=== PATIENT | female | born 1955 | race Caucasian/White ===

== ENCOUNTER 2018-11-14 00:38 | Inpatient (IN) ==
[2018-11-14] MEDS ORDERED: Isovue-370 500 ML BOTTLE IVP ONE (01:22)
[2018-11-14] MEDS ORDERED: *HR* FentaNYL (PF) 100 MCG/2 ML VIAL IVP ONE ×2 (01:29→20:31)
--- NOTE | 2018-11-14 01:30 | Emergency Department Note ---
Disposition Clinical Impression: Septic shock, Elevated lactic acid level Urinary tract infection Qualifiers: Urinary tract infection type: acute cystitis Hematuria presence: without hematuria Qualified Code(s): N30.00 - Acute cystitis without hematuria Disposition: Admitted As Inpatient Condition: Critical Time of Disposition: 05:20 Abdominal Pain HPI - General Chief Complaint: ED Abdominal Pain Stated Complaint: Abd Pain/Swelling Time Seen by Provider: 11/14/18 00:39 Source: patient, family Mode of arrival: ambulatory Limitations: no limitations Nursing Notes Reviewed: Yes Vital Signs Reviewed: Yes - History of Present Illness HPI Narrative: 63-year-old female past medical history of CHF, COPD, chronic kidney disease, diabetes presenting for a 3 hour history of abdominal pain. The patient states that she has had worsening abdominal distention over the past 3 d ays but notices that approximately 10 PM this evening she had sudden onset of extreme 10 out of 10 abdominal pain as well as bruising noted over her anterior abdomen. The patient states that the pain has made her short of breath and that she has noticed worsening erythema in her lower extremities as well as pitting edema. Patient is not on any blood thinners. Upon my initial evaluation, my general impression is that the patient is in acute distress due to pain. She is otherwise awake, alert, oriented, engaged to conversation and answering questions appropriately. There are no overt lateralizing signs, the patient is in no acute distress; their skin appears to be normal in color, they are not pale, not cyanotic, and not diaphoretic, they are sitting up in hospital bed interacting appropriately with environment. There is poor perfusion noted to the lower extremities with a dusky appearance, there is 3+ pitting edema noted. There is bruising noted to the anterior abdomen as well as ulcerations to the lower extremities. Patient is tender to palpation of the abdomen diffusely. Pt Subjective Complaint: abdominal pain Onset (ago): hour(s) Consistency: Worsening Location: diffuse Pain Severity: severe Pain Scale: 10 Quality: stabbing, sharp Radiation: none Migration to: no migration Associated symptoms: Reports: nausea. Denies: vomiting, fever, chills, hematemesis, hematochezia, melena, hematuria Treatments prior to arrival: none - Related Data Home Medications Medication Instructions Recorded Confirmed Budesonide/Formoterol 80/4.5 1 puff IH DAILY 11/14/18 11/14/18 [Symbicort 80/4.5] Ergocalciferol (VITAMIN D2) 50,000 unit PO QWEEK 11/14/18 11/14/18 [Vitamin D2] Escitalopram [Lexapro] 20 mg PO DAILY 11/14/18 11/14/18 Esomeprazole Magnesium [Nexium] 40 mg PO DAILY 11/14/18 11/14/18 Furosemide [Lasix] 20 mg PO QPM 11/14/18 11/14/18 Furosemide [Lasix] 40 mg PO QAM 11/14/18 11/14/18 Levothyroxine [Synthroid] 125 mcg PO 0630 11/14/18 11/14/18 Lisinopril [Zestril] 20 mg PO DAILY 11/14/18 11/14/18 Magnesium 250 mg PO DAILY 11/14/18 11/14/18 Potassium Citrate [Urocit-K] 20 meq PO BID 11/14/18 11/14/18 Ropinirole HCl [Requip] 4 mg PO HS 11/14/18 11/14/18 metFORMIN [Glucophage] 500 mg PO DAILY 11/14/18 11/14/18 Allergies Allergy/AdvReac Type Severity Reaction Status Date / Time acetaminophen [From Vicodin] AdvReac Palpitation Verified 11/17/17 08:55 s hydrocodone [From Vicodin] AdvReac Palpitation Verified 11/17/17 08:55 s promethazine [From Phenergan] AdvReac Irritable Verified 11/17/17 08:55 Review of Systems: *See History of Present Illness for more detail Constitutional: Denies: fever, chills Cardiovascular: Denies: chest pain Respiratory: Denies: dyspnea, cough, hemoptysis Gastrointestinal: Admits: abdominal pain, nausea, denies: vomiting, diarrhea, constipation, hematemesis, melena, hematochezia Genitourinary: Denies: hematuria Musculoskeletal: Denies: back pain, neck pain Integumentary: Admits: rash Neurological: Denies: headache, weakness, lightheadedness/dizziness, numbness, paresthesias, difficulty with ambulation. Endocrine: Denies: fatigue Hematological/Lymphatic: Admits: easy bruising All systems ED: reviewed and negative except as stated. Review of Systems: As Per HPI Abdominal Pain PMH - Past Medical History Medical history: Reports: arthritis, CHF, COPD, GERD, hyperlipidemia, hypertension, kidney stones, migraine, renal disease, thyroid disease Female Surgical History: Reports: appendectomy, cholecystectomy Psychiatric history: Reports: no psych history - Social History Smoking status: Former smoker Alcohol use: Reports: rarely Drug use: Reports: none Physical Exam Constitutional: No acute distress, [id number], engaged to conversation, speech is fluid, answers questions appropriately Neuro: GCS 15, no overt focal neurological deficits Head: Atraumatic, normocephalic Eyes: Pupils equal, round and reactive to light, no scleral icterus, no conjunctival injection Mouth: No lip swelling, perioral cyanosis, drooling, or trismus. Neck: Trachea midline without deviation. Anterior neck is supple without swelling, no overt thyromegaly noted. Chest: Symmetric chest wall rise Heart: Cardiac rhythm and rate are regular with S1 and S2 , no S3 or S4 appreciated, no murmurs, rubs, or clicks. Lungs: Lungs are clear to auscultation bilaterally, without accessory muscle use or prolonged expiratory phase. No wheezes, rhonchi, rales or stridor appreciated. *Abdomen: Abdomen is morbidly obese, diffusely tender to palpation, distended, evidence of significant bruising over the anterior abdomen. Otherwise soft to palpation, normal bowel sounds, no evidence of surgical incisions, or abnormal mass. No abdominal bruit auscultated. Non-rigid, no organomegaly, no ascites appreciated. No pulsatile mass, no guarding to palpation in all four quadrants, no rebound Extremities: 3+ pitting edema. Motor intact in all 4 extremities. Psychiatric exam: patient appears very anxious and teary Integumentary: As previously noted - General Limitations: no limitations General appearance: alert, in no apparent distress Course Course Narrative: Given the patient's poor peripheral perfusion status in the setting of sudden onset severe abdominal pain, distention, and bruising, we have a high index of suspicion for abdominal aortic aneurysm. Given the patient's chronic kidney disease with likely acute kidney injury superimposed on CKD we spoke with nephrology regarding renal protective interventions that could be undertaken. We are concerned about additional fluids the patient appears to be significantly fluid overloaded. Nephrology has no further recommendations at this time but will be consulted on this patient for further intervention including dialysis if needed during hospitalist admission. Shared decision making was utilized with the patient and family matters bedside versus the risks versus benefits of CT dissection with IV arterial contrast load potentially causing worsening renal function. The patient family verbalizes her understanding and agree with proceeding with CT angiogram as needed to rule out dissection. Vital Signs Temperature 99.1 F 11/14/18 00:47 Pulse Rate 111 11/14/18 00:47 Respiratory Rate 22 11/14/18 00:47 Blood Pressure 129/69 11/14/18 00:47 O2 Sat by Pulse Oximetry 92 11/14/18 00:47 Temperature 99.1 F 11/14/18 00:47 Pulse Rate 94 11/14/18 05:20 Respiratory Rate 20 11/14/18 05:20 Blood Pressure 89/55 11/14/18 05:20 O2 Sat by Pulse Oximetry 95 11/14/18 05:20 Oxygen Delivery Oxygen Delivery Room Air Procedures - Central Line Placement Right IJ Central Line Inserted*: Yes Central Line Catheter Replacement*: Yes Central Line Insertion: emergent Consent Obtained: written consent Procedural Pause: verify patient name and date of , timeout performed per policy, leonard and assess the site, assemble equipment and verify supplies, perform hand hygiene Patient Placed on Monitor/Pulse Ox: Yes During the Procedure: clinician is wearing sterile gloves, cap, mask,& gown during insertion, sterile field and sterile technique are maintained, patient's face is covered with drape or mask and wearing a cap, everyone in room is we aring a mask Central Line Prep: Chlorhexidine scrub Prep the Procedure Site: apply chloraprep to the skin using a back and forth scrubbing motion, apply chloraprep for 30 seconds (upper body), 1-2 min (femoral sites), allow prep to dry, drape the patient with a full body drape Local Anesthetic: lidocaine 2% Ultrasound Used for Placement: Yes Central Line Lumen Inserted: triple Post Procedure: sutured in place, good blood return, all ports aspirated, flushed, capped, sterile dressing applied, guide wire removed and visualized Post Procedure X-Ray: tip of catheter in good position, no pneumothorax seen Patient Tolerated Procedure: well, no complications Complications: none Name of Clinician Inserting Central Line: Bandar Evans D.O. Clinician Assisting/Completing Checklist: Chauncey Gallegos M.D. Date: 11/14/18 Time: 05:15 Additional Comments: Initial attempt at central line unsuccessful as it appears internal jugular fed into subclavian and led to a coiling of the central line which would not draw or flush. Initial central line was removed with replacement kit obtained. Sterile field was maintained and second more proximal attempt was made with successful insertion of central internal jugular vein cannulation. Patient tolerated procedure well without complications. X-ray was reviewed and tip of catheter is in good position without pneumothorax seen. Abdominal Pain - MDM Narrative Medical decision making narrative: Patient noted to have mildly elevated white count, lactic acidosis increased to 4.4, UTI apparent, tree and but opacities noted on CT dissection study however no PE or dissection was identified. Otherwise unremarkable workup. Patient started empirically on vancomycin and Zosyn. Due to continued hypotension central line catheter was placed with norepinephrine drip initiated. Patient has received cautious fluids due to concern of fluid overload status. Patient is doing well currently and will be admitted to ICU for further evaluation and management of presumed urosepsis. Patient family members bedside verbalized their understanding and agreement this plan and the patient is stable at time of admission. - Lab Data Lab results reviewed: Yes I reviewed the patient's lab results. Result diagrams: 11/14/18 01:22 11/14/18 01:22 Lab Results 11/14/18 11/14/18 11/14/18 Range/Units 01:22 01:22 01:22 WBC 13.3 H (4.3-11.1) K/mcL RBC 5.39 H (3.82-4.97) M/mcL Hgb 16.2 H (11.5-15.4) g/dL Hct 51.0 H (35.3-44.9) % MCV 94.6 (83.0-100.0) fL MCH 30.1 (28.0-33.3) pg MCHC 31.8 (31.6-35.5) g/dL RDW 16.3 H (11.5-14.5) % Plt Count 156 (140-400) K/mcL MPV 11.1 (9.4-12.4) fL Immature Gran % 0.4 (0-4) % Seg Neutrophils % 90.3 % Lymphocytes % 6.8 % Monocytes % 2.1 % Eosinophils % 0.2 % Basophils % 0.2 % Neutrophils # 12.0 H (1.6-8.9) K/mcL Lymphocytes # 0.9 (0.6-4.6) K/mcL Monocytes # 0.3 (0.0-1.3) K/mcL Eosinophils # 0.0 (0.0-0.6) K/mcL Basophils # 0.0 (0.0-0.2) K/mcL PT 13.0 H (9.4-12.1) Seconds INR 1.1 APTT 29.0 (26.0-36.0) Seconds ABG pH (7.32-7.45) pH Units ABG pCO2 (35-45) mmHg ABG pO2 (85-104) mmHg ABG HCO3 (21-27) mEq/L ABG Total CO2 (20-26) mEq/L ABG O2 Saturation (95-98) % ABG Base Excess (-2 to 3) mEq/L O2 Delivery Device Inspired O2 (1-15=lpm [id number]=%) Sodium 136 (136-145) mEq/L Potassium 4.9 (3.5-5.1) mEq/L Chloride 95 L (98-107) mEq/L Carbon Dioxide 25 (23-29) mEq/L BUN 43 H (8-23) mg/dL Creatinine 2.20 H (0.60-1.20) mg/dL Est GFR ( Amer) 27 L (> 60) Est GFR (Non-Af Amer) 22 L (> 60) BUN/Creatinine Ratio 20 (6-26) Glucose 128 H (70-105) mg/dL Calculated Osmolality 294 (280-300) Lactic Acid (0.5-2.2) mmol/L Calcium 9.9 (8.6-10.3) mg/dL Phosphorus 4.2 (2.7-4.5) mg/dL Magnesium 1.8 (1.6-2.6) mg/dL Total Bilirubin 1.8 H (0.3-1.0) mg/dL Direct Bilirubin 0.6 H (0.0-0.2) mg/dL Indirect Bilirubin 1.2 (0.0-1.2) mg/dL AST 28 (13-39) Units/L ALT 27 (7-52) Units/L Alkaline Phosphatase 102 (34-104) Units/L Troponin I < 0.03 (< 0.04) ng/mL Serum Total Protein 6.9 (6.4-8.9) g/dL Albumin 4.3 (3.5-5.7) g/dL Globulin 2.6 (2.4-3.5) g/dL Albumin/Globulin Ratio 1.7 (1.1-2.2) Lipase 66 (11-82) Units/L Urine Color (Yellow) Urine Clarity (Clear) Urine pH (5.0-8.0) pH Units Ur Specific [place] (1.010-1.025) Urine Protein (Neg-Trace) mg/dL Urine Glucose (UA) (Normal) mg/dL Urine Ketones (Negative) mg/dL Urine Blood (Negative) Urine Nitrite (Negative) Urine Bilirubin (Negative) Urine Urobilinogen (Normal) mg/dL Ur Leukocyte Esterase (Negative) Urine Microscopic RBC (0-3) per hpf Urine Microscopic WBC (0-3) per hpf Ur Squamous Epith Cells (None-Few) per lpf Amorphous Sediment (Few) Urine Bacteria (None-Few) per hpf Hyaline Casts (None-Few) per lpf Ur Culture Indicated? (NO) 11/14/18 11/14/18 11/14/18 Range/Units 01:22 01:51 02:24 WBC (4.3-11.1) K/mcL RBC (3.82-4.97) M/mcL Hgb (11.5-15.4) g/dL Hct (35.3-44.9) % MCV (83.0-100.0) fL MCH (28.0-33.3) pg MCHC (31.6-35.5) g/dL RDW (11.5-14.5) % Plt Count (140-400) K/mcL MPV (9.4-12.4) fL Immature Gran % (0-4) % Seg Neutrophils % % Lymphocytes % % Monocytes % % Eosinophils % % Basophils % % Neutrophils # (1.6-8.9) K/mcL Lymphocytes # (0.6-4.6) K/mcL Monocytes # (0.0-1.3) K/mcL Eosinophils # (0.0-0.6) K/mcL Basophils # (0.0-0.2) K/mcL PT (9.4-12.1) Seconds INR APTT (26.0-36.0) Seconds ABG pH 7.46 H (7.32-7.45) pH Units ABG pCO2 33 L (35-45) mmHg ABG pO2 55 L (85-104) mmHg ABG HCO3 23 (21-27) mEq/L ABG Total CO2 24 (20-26) mEq/L ABG O2 Saturation 90 L (95-98) % ABG Base Excess 0 (-2 to 3) mEq/L O2 Delivery Device Cannula Inspired O2 6.0 (1-15=lpm [id number]=%) Sodium (136-145) mEq/L Potassium (3.5-5.1) mEq/L Chloride (98-107) mEq/L Carbon Dioxide (23-29) mEq/L BUN (8-23) mg/dL Creatinine (0.60-1.20) mg/dL Est GFR ( Amer) (> 60) Est GFR (Non-Af Amer) (> 60) BUN/Creatinine Ratio (6-26) Glucose (70-105) mg/dL Calculated Osmolality (280-300) Lactic Acid 4.4 H* (0.5-2.2) mmol/L Calcium (8.6-10.3) mg/dL Phosphorus (2.7-4.5) mg/dL Magnesium (1.6-2.6) mg/dL Total Bilirubin (0.3-1.0) mg/dL Direct Bilirubin (0.0-0.2) mg/dL Indirect Bilirubin (0.0-1.2) mg/dL AST (13-39) Units/L ALT (7-52) Units/L Alkaline Phosphatase (34-104) Units/L Troponin I (< 0.04) ng/mL Serum Total Protein (6.4-8.9) g/dL Albumin (3.5-5.7) g/dL Globulin (2.4-3.5) g/dL Albumin/Globulin Ratio (1.1-2.2) Lipase (11-82) Units/L Urine Color Yellow (Yellow) Urine Clarity Turbid A (Clear) Urine pH 5.0 (5.0-8.0) pH Units Ur Specific [place] 1.015 (1.010-1.025) Urine Protein 100 H (Neg-Trace) mg/dL Urine Glucose (UA) Normal (Normal) mg/dL Urine Ketones Negative (Negative) mg/dL Urine Blood Large H (Negative) Urine Nitrite Negative (Negative) Urine Bilirubin Negative (Negative) Urine Urobilinogen Normal (Normal) mg/dL Ur Leukocyte Esterase Large H (Negative) Urine Microscopic RBC TNTC H (0-3) per hpf Urine Microscopic WBC TNTC H (0-3) per hpf Ur Squamous Epith Cells Many H (None-Few) per lpf Amorphous Sediment Many H (Few) Urine Bacteria Many H (None-Few) per hpf Hyaline Casts None Seen (None-Few) per lpf Ur Culture Indicated? YES A (NO) - Radiology Data Radiology results reviewed: Yes I reviewed the patient's radiology results. CT Dissection 11/14/18 01:22 IMPRESSION: CHEST No evidence of an acute aortic syndrome. Negative for acute pulmonary embolism. Bilateral lower lobe tree-in-bud nodularity, most suspicious for aspiration related bronchiolitis given basilar distribution and esophageal features of dysmotility and reflux. Enlarged main pulmonary artery and right heart chambers may be seen with pulmonary hypertension. These findings are new since 2009. ABDOMEN/PELVIS Features of volume overload, including small volume abdominal ascites, mesenteric/retroperitoneal edema and soft tissue anasarca. 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 D/ / Sage Abdalla / Sage Abdalla Interpreting Provider: Sage Abdalla Chest X-Ray 11/14/18 04:11 IMPRESSION: Uncomplicated line placement after adjusting the right internal jugular central venous catheter. D/ / Juan Diego Guerra MD / Juan Diego Guerra MD Interpreting Provider: Juan Diego Guerra MD - EKG Data EKG attestation: Yes I reviewed and interpreted this EKG. EKG results narrative: The patients EKG shows a sinus tachycardia at a rate of 107 beats per minute, PA interval of 191 milliseconds, a QRS duration of 103 milliseconds, a QT/QTc interval of 295 / 394 milliseconds respectively. There are no significant ST segment elevations, depressions, pathologic Q waves, abnormal T-wave inversions, nor any other signs of acute ischemic change. This EKG that was performed today is generally consistent in morphology with prior EKG that was performed on 07/01/2018. Sepsis Reassessment Note - Evaluation Current Stage of Sepsis: septic shock Possible Source of Sepsis: genitourinary - Focused Exam Date of Encounter: 11/14/18 Time of Encounter: 05:21 Vital Signs: Vital Signs Temp Pulse Resp BP Pulse Ox 11/14/18 04:53 93 20 72/60 98 11/14/18 04:04 96 20 84/51 96 11/14/18 03:46 96 20 100/79 95 11/14/18 03:29 96 18 88/49 89 11/14/18 02:46 99 20 95/55 92 11/14/18 02:40 109 20 72/45 95 11/14/18 02:28 99 20 77/58 91 11/14/18 01:34 91 22 114/97 94 11/14/18 00:47 99.1 F 111 22 129/69 92 Respiratory Exam: Present: wheezes Cardiovascular Exam: Present: RRR Capillary Refill: < 2 seconds Peripheral Pulse Strength: 2+ slightly diminished Peripheral Pulse Location: Radial Skin Exam: normal turgor
[2018-11-14 01:43] LABS: Basophils % 0.2 %; Eosinophils % 0.2 %; Hemoglobin 16.2 g/dL (11.5-15.4); Immature Granulocytes % 0.4 % (0-4); Lymphocytes # 0.9 K/mcL (0.6-4.6); Lymphocytes % 6.8 %; Mean Corpuscular HGB Conc 31.8 g/dL (31.6-35.5); Mean Corpuscular Hemoglobin 30.1 pg (28.0-33.3); Mean Corpuscular Volume 94.6 fL (83.0-100.0); Mean Platelet Volume 11.1 fL (9.4-12.4); Monocytes # 0.3 K/mcL (0.0-1.3); Monocytes % 2.1 %; Platelet Count 156 K/mcL (140-400); Red Blood Count 5.39 M/mcL (3.82-4.97); Red Cell Distribution Width 16.3 % (11.5-14.5); Segmented Neutrophils % 90.3 %; White Blood Count 13.3 K/mcL (4.3-11.1)
[2018-11-14 01:53] LABS: ABG Base Excess 0 mEq/L (-2 to 3); ABG HCO3 23 mEq/L (21-27); ABG Oxygen Saturation 90 % (95-98); ABG PCO2 33 mmHg (35-45); ABG PH 7.46 pH Units (7.32-7.45); ABG PO2 55 mmHg (85-104); ABG TCO2 24 mEq/L (20-26)
[2018-11-14 02:01] LABS: Alanine Aminotransferase 27 Units/L (7-52); Albumin 4.3 g/dL (3.5-5.7); Albumin/Globulin Ratio 1.7 (1.1-2.2); Alkaline Phosphatase 102 Units/L (34-104); Aspartate Amino Transferase 28 Units/L (13-39); BUN/Creatinine Ratio 20 (6-26); Bilirubin,Direct 0.6 mg/dL (0.0-0.2); Bilirubin,Indirect 1.2 mg/dL (0.0-1.2); Bilirubin,Total 1.8 mg/dL (0.3-1.0); Blood Urea Nitrogen 43 mg/dL (8-23); Calcium 9.9 mg/dL (8.6-10.3); Carbon Dioxide 25 mEq/L (23-29); Chloride 95 mEq/L (98-107); Globulin 2.6 g/dL (2.4-3.5); Glucose 128 mg/dL (70-105); Lipase 66 Units/L (11-82); Magnesium 1.8 mg/dL (1.6-2.6); Osmolality,Calculated 294 (280-300); Phosphorous 4.2 mg/dL (2.7-4.5); Potassium 4.9 mEq/L (3.5-5.1); Sodium 136 mEq/L (136-145); Total Protein 6.9 g/dL (6.4-8.9); Troponin I < 0.03 ng/mL (< 0.04); eGFR For African Americans 27 (> 60); eGFR For Non-African Americans 22 (> 60)
[2018-11-14 02:16] LABS: INR 1.1
[2018-11-14 02:32] LABS: Bilirubin,Urine Negative (Negative); Blood,Urine Large (Negative); Clarity,Urine Turbid (Clear); Color,Urine Yellow (Yellow); Glucose,Urine (UA) Normal (Normal); Ketones,Urine Negative (Negative); Leukocyte Esterase,Urine Large (Negative); Nitrite,Urine Negative (Negative); Protein,Urine 100 mg/dL (Neg-Trace); Specific Gravity,Urine 1.015 (1.010-1.025); Urobilinogen,Urine Normal (Normal)
[2018-11-14 02:33] LABS: Bacteria,Urine Many per hpf (None-Few); RBC,Urine TNTC per hpf (0-3); Squamous Epithelial Cell,Urine Many per lpf (None-Few); WBC,Urine TNTC per hpf (0-3)
[2018-11-14] MEDS ORDERED: Piperacillin/Tazobactam 3.375 GM in 0.9 % Sodium Chloride Mini Bag 100 ML IVPB ONE (02:41)
[2018-11-14 02:45] LABS: Amorphous Sediment,Urine Many (Few); Hyaline Casts,Urine None Seen per lpf (None-Few)
[2018-11-14] MEDS ORDERED: 0.9 % Sodium Chloride 500 ML IVC ONE ×2 (02:52→05:45)
[2018-11-14] MEDS: Norepinephrine 4 MG in D5% in Water 250 ML IVC SCH ×4 (04:48→14:20)
[2018-11-14] MEDS: 0.9 % Sodium Chloride 1,000 ML IVC SCH ×2 (04:49→08:23)
[2018-11-14] MEDS ORDERED: 0.9 % Sodium Chloride 1,000 ML ONE (04:50)
--- NOTE | 2018-11-14 05:12 | Emergency Department Note ---
Disposition Clinical Impression: Septic shock, Elevated lactic acid level Urinary tract infection Qualifiers: Urinary tract infection type: site unspecified Hematuria presence: without hematuria Qualified Code(s): N39.0 - Urinary tract infection, site not specified Disposition: Admitted As Inpatient Condition: Serious Time of Disposition: 05:00 General Adult HPI - General Chief complaint: ED Abdominal Pain Stated complaint: Abd Pain/Swelling Time Seen by Provider: 11/14/18 00:39 Source: patient, family Mode of arrival: ambulatory Limitations: no limitations Nursing Notes Reviewed: Yes Vital Signs Reviewed: Yes - History of Present Illness Pain Scale: 10 - Related Data Home Medications Medication Instructions Recorded Confirmed Budesonide/Formoterol 80/4.5 1 puff IH DAILY 11/14/18 11/14/18 [Symbicort 80/4.5] Ergocalciferol (VITAMIN D2) 50,000 unit PO QWEEK 11/14/18 11/14/18 [Vitamin D2] Escitalopram [Lexapro] 20 mg PO DAILY 11/14/18 11/14/18 Esomeprazole Magnesium [Nexium] 40 mg PO DAILY 11/14/18 11/14/18 Furosemide [Lasix] 20 mg PO QPM 11/14/18 11/14/18 Furosemide [Lasix] 40 mg PO QAM 11/14/18 11/14/18 Levothyroxine [Synthroid] 125 mcg PO 0630 11/14/18 11/14/18 Lisinopril [Zestril] 20 mg PO DAILY 11/14/18 11/14/18 Magnesium 250 mg PO DAILY 11/14/18 11/14/18 Potassium Citrate [Urocit-K] 20 meq PO BID 11/14/18 11/14/18 Ropinirole HCl [Requip] 4 mg PO HS 11/14/18 11/14/18 metFORMIN [Glucophage] 500 mg PO DAILY 11/14/18 11/14/18 Allergies Allergy/AdvReac Type Severity Reaction Status Date / Time acetaminophen [From Vicodin] AdvReac Palpitation Verified 11/17/17 08:55 s hydrocodone [From Vicodin] AdvReac Palpitation Verified 11/17/17 08:55 s promethazine [From Phenergan] AdvReac Irritable Verified 11/17/17 08:55 Past Medical History - Past Medical History Medical history: Reports: arthritis, CHF, COPD, GERD, hyperlipidemia, hypertension, kidney stones, migraine, renal disease, thyroid disease Surgical history: Reports: cholecystectomy, hysterectomy Psychiatric history: Reports: no psych history - Social History Smoking Status: Former smoker Smokeless Tobacco Status: No Alcohol use: Reports: rarely Drug use: Reports: none Physical Exam - General Limitations: no limitations General appearance: alert, in no apparent distress Course Vital Signs Temperature 99.1 F 11/14/18 00:47 Pulse Rate 111 11/14/18 00:47 Respiratory Rate 22 11/14/18 00:47 Blood Pressure 129/69 11/14/18 00:47 O2 Sat by Pulse Oximetry 92 11/14/18 00:47 Temperature 99.1 F 11/14/18 00:47 Pulse Rate 94 11/14/18 05:20 Respiratory Rate 20 11/14/18 05:20 Blood Pressure 89/55 11/14/18 05:20 O2 Sat by Pulse Oximetry 95 11/14/18 05:20 Oxygen Delivery Oxygen Delivery Room Air Medical Decision Making - Medical Records Medical records reviewed: Yes I reviewed the patient's medical records. - Lab Data Lab results reviewed: Yes I reviewed the patient's lab results. Result diagrams: 11/14/18 01:22 11/14/18 01:22 Lab Results 11/14/18 11/14/18 11/14/18 Range/Units 01:22 01:22 01:22 WBC 13.3 H (4.3-11.1) K/mcL RBC 5.39 H (3.82-4.97) M/mcL Hgb 16.2 H (11.5-15.4) g/dL Hct 51.0 H (35.3-44.9) % MCV 94.6 (83.0-100.0) fL MCH 30.1 (28.0-33.3) pg MCHC 31.8 (31.6-35.5) g/dL RDW 16.3 H (11.5-14.5) % Plt Count 156 (140-400) K/mcL MPV 11.1 (9.4-12.4) fL Immature Gran % 0.4 (0-4) % Seg Neutrophils % 90.3 % Lymphocytes % 6.8 % Monocytes % 2.1 % Eosinophils % 0.2 % Basophils % 0.2 % Neutrophils # 12.0 H (1.6-8.9) K/mcL Lymphocytes # 0.9 (0.6-4.6) K/mcL Monocytes # 0.3 (0.0-1.3) K/mcL Eosinophils # 0.0 (0.0-0.6) K/mcL Basophils # 0.0 (0.0-0.2) K/mcL PT 13.0 H (9.4-12.1) Seconds INR 1.1 APTT 29.0 (26.0-36.0) Seconds ABG pH (7.32-7.45) pH Units ABG pCO2 (35-45) mmHg ABG pO2 (85-104) mmHg ABG HCO3 (21-27) mEq/L ABG Total CO2 (20-26) mEq/L ABG O2 Saturation (95-98) % ABG Base Excess (-2 to 3) mEq/L O2 Delivery Device Inspired O2 (1-15=lpm [id number]=%) Sodium 136 (136-145) mEq/L Potassium 4.9 (3.5-5.1) mEq/L Chloride 95 L (98-107) mEq/L Carbon Dioxide 25 (23-29) mEq/L BUN 43 H (8-23) mg/dL Creatinine 2.20 H (0.60-1.20) mg/dL Est GFR ( Amer) 27 L (> 60) Est GFR (Non-Af Amer) 22 L (> 60) BUN/Creatinine Ratio 20 (6-26) Glucose 128 H (70-105) mg/dL Calculated Osmolality 294 (280-300) Lactic Acid (0.5-2.2) mmol/L Calcium 9.9 (8.6-10.3) mg/dL Phosphorus 4.2 (2.7-4.5) mg/dL Magnesium 1.8 (1.6-2.6) mg/dL Total Bilirubin 1.8 H (0.3-1.0) mg/dL Direct Bilirubin 0.6 H (0.0-0.2) mg/dL Indirect Bilirubin 1.2 (0.0-1.2) mg/dL AST 28 (13-39) Units/L ALT 27 (7-52) Units/L Alkaline Phosphatase 102 (34-104) Units/L Troponin I < 0.03 (< 0.04) ng/mL Serum Total Protein 6.9 (6.4-8.9) g/dL Albumin 4.3 (3.5-5.7) g/dL Globulin 2.6 (2.4-3.5) g/dL Albumin/Globulin Ratio 1.7 (1.1-2.2) Lipase 66 (11-82) Units/L Urine Color (Yellow) Urine Clarity (Clear) Urine pH (5.0-8.0) pH Units Ur Specific [place] (1.010-1.025) Urine Protein (Neg-Trace) mg/dL Urine Glucose (UA) (Normal) mg/dL Urine Ketones (Negative) mg/dL Urine Blood (Negative) Urine Nitrite (Negative) Urine Bilirubin (Negative) Urine Urobilinogen (Normal) mg/dL Ur Leukocyte Esterase (Negative) Urine Microscopic RBC (0-3) per hpf Urine Microscopic WBC (0-3) per hpf Ur Squamous Epith Cells (None-Few) per lpf Amorphous Sediment (Few) Urine Bacteria (None-Few) per hpf Hyaline Casts (None-Few) per lpf Ur Culture Indicated? (NO) 11/14/18 11/14/18 11/14/18 Range/Units 01:22 01:51 02:24 WBC (4.3-11.1) K/mcL RBC (3.82-4.97) M/mcL Hgb (11.5-15.4) g/dL Hct (35.3-44.9) % MCV (83.0-100.0) fL MCH (28.0-33.3) pg MCHC (31.6-35.5) g/dL RDW (11.5-14.5) % Plt Count (140-400) K/mcL MPV (9.4-12.4) fL Immature Gran % (0-4) % Seg Neutrophils % % Lymphocytes % % Monocytes % % Eosinophils % % Basophils % % Neutrophils # (1.6-8.9) K/mcL Lymphocytes # (0.6-4.6) K/mcL Monocytes # (0.0-1.3) K/mcL Eosinophils # (0.0-0.6) K/mcL Basophils # (0.0-0.2) K/mcL PT (9.4-12.1) Seconds INR APTT (26.0-36.0) Seconds ABG pH 7.46 H (7.32-7.45) pH Units ABG pCO2 33 L (35-45) mmHg ABG pO2 55 L (85-104) mmHg ABG HCO3 23 (21-27) mEq/L ABG Total CO2 24 (20-26) mEq/L ABG O2 Saturation 90 L (95-98) % ABG Base Excess 0 (-2 to 3) mEq/L O2 Delivery Device Cannula Inspired O2 6.0 (1-15=lpm [id number]=%) Sodium (136-145) mEq/L Potassium (3.5-5.1) mEq/L Chloride (98-107) mEq/L Carbon Dioxide (23-29) mEq/L BUN (8-23) mg/dL Creatinine (0.60-1.20) mg/dL Est GFR ( Amer) (> 60) Est GFR (Non-Af Amer) (> 60) BUN/Creatinine Ratio (6-26) Glucose (70-105) mg/dL Calculated Osmolality (280-300) Lactic Acid 4.4 H* (0.5-2.2) mmol/L Calcium (8.6-10.3) mg/dL Phosphorus (2.7-4.5) mg/dL Magnesium (1.6-2.6) mg/dL Total Bilirubin (0.3-1.0) mg/dL Direct Bilirubin (0.0-0.2) mg/dL Indirect Bilirubin (0.0-1.2) mg/dL AST (13-39) Units/L ALT (7-52) Units/L Alkaline Phosphatase (34-104) Units/L Troponin I (< 0.04) ng/mL Serum Total Protein (6.4-8.9) g/dL Albumin (3.5-5.7) g/dL Globulin (2.4-3.5) g/dL Albumin/Globulin Ratio (1.1-2.2) Lipase (11-82) Units/L Urine Color Yellow (Yellow) Urine Clarity Turbid A (Clear) Urine pH 5.0 (5.0-8.0) pH Units Ur Specific [place] 1.015 (1.010-1.025) Urine Protein 100 H (Neg-Trace) mg/dL Urine Glucose (UA) Normal (Normal) mg/dL Urine Ketones Negative (Negative) mg/dL Urine Blood Large H (Negative) Urine Nitrite Negative (Negative) Urine Bilirubin Negative (Negative) Urine Urobilinogen Normal (Normal) mg/dL Ur Leukocyte Esterase Large H (Negative) Urine Microscopic RBC TNTC H (0-3) per hpf Urine Microscopic WBC TNTC H (0-3) per hpf Ur Squamous Epith Cells Many H (None-Few) per lpf Amorphous Sediment Many H (Few) Urine Bacteria Many H (None-Few) per hpf Hyaline Casts None Seen (None-Few) per lpf Ur Culture Indicated? YES A (NO) - Radiology Data Radiology results reviewed: Yes I reviewed the patient's radiology results. CT Dissection 11/14/18 01:22 IMPRESSION: CHEST No evidence of an acute aortic syndrome. Negative for acute pulmonary embolism. Bilateral lower lobe tree-in-bud nodularity, most suspicious for aspiration related bronchiolitis given basilar distribution and esophageal features of dysmotility and reflux. Enlarged main pulmonary artery and right heart chambers may be seen with pulmonary hypertension. These findings are new since 2009. ABDOMEN/PELVIS Features of volume overload, including small volume abdominal ascites, mesenteric/retroperitoneal edema and soft tissue anasarca. 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 D/ / Sage Abdalla / Sage Abdalla Interpreting Provider: Sage Abdalla Chest X-Ray 11/14/18 04:11 IMPRESSION: Uncomplicated line placement after adjusting the right internal jugular central venous catheter. D/ / Juan Diego Guerra MD / Juan Diego Guerra MD Interpreting Provider: Juan Diego Guerra MD - EKG Data EKG #1 EKG attestation: Yes I reviewed and interpreted this EKG. EKG results narrative: EKG shows sinus tachycardia with ventricular rate of 107. Low voltage. Minimal inferior ST elevations. No ectopy. No ST depression. Critical Care Time Critical Care Time: Yes Total Critical Care Time: 90 Attestation: Critical care performed: Time is exclusive of separately billable procedures. Time includes: direct patient care, patient reassessment, coordination of patient care, interpretation of data (laboratory data, radiology data, and respiratory data), review of patient's medical records, medical consultation and documentation of patient care. Procedures included in critical care time: Procedures excluded from critical care time: Right IJ central line placement. Attestation Statement - Attestation Attestation: IChauncey MD, personally evaluated this patient and discussed their management with the resident physician. I reviewed the resident's note and agree with the documented findings, medical decision making, and plan of care. I reviewed the residents documentation and agree with the residents assessment and plan of care. I have personally had face to face time with the patient. I personally supervised and was present for the will/critical portions of the following procedures completed by the resident: EKG interpretation, right IJ central venous catheter placement. 63-year-old female presented to the emergency department with a complaint of severe crampy mid and lower abdominal pain that started about 10 PM this evening . She also complains of pain in both legs. Also increased shortness of breath. No increased cough. No chest pain. No vomiting. She also noticed some spontaneous bruising on the right mid to lower abdominal wall which just started this evening also. On examination patient is a well-developed morbidly obese female in mild to moderate distress. She is alert and oriented 3. There is no cyanosis or diaphoresis. Breath sounds are decreased bilaterally. No definite rales or wheezes noted. Heart regular with a mild tachycardia. Abdomen is soft with mild diffuse lower abdominal tenderness. There is a large area of ecchymosis on the right mid lower abdominal wall. Patient has mottling of the lower extremities. Family states she normally has discoloration of her feet and ankles but not the entire legs. She does have palpable pedal pulses. No gross focal neurological deficits. EKG shows sinus tachycardia with ventricular rate of 107. Low voltage. Minimal inferior ST elevations. No ectopy. No ST depression. Labs and imaging reviewed. Lactic acid 4.4. WBC 13.3. Creatinine 2.20. Urinalysis shows significant UTI. CTA dissection study was performed despite patient's renal function due to the abrupt onset of this lower abdominal pain and mottling of the lower extremities we were very concerned about an aneurysm or dissection. This showed no evidence of a dissection or aneurysm. No evidence of pulmonary embolism. Patient became progressively more hypotensive here in the emergency department. A right IJ central venous catheter was placed by Dr. Evans under my direct supervision. The first attempt the catheter called within the neck and did not of the chest. This was removed and on second attempt the catheter was placed successfully without difficulty. Confirmed by x-ray. Patient was started on norepinephrine infusion. The hospitalist, Dr. Castillo, was consulted and accepted admission of the patient.
[2018-11-14] MEDS ORDERED: Ipratropium/Albuterol Neb 3 ML IH ONE (05:24)
[2018-11-14] MEDS ORDERED: Ipratropium/Albuterol Neb 3 ML ONE ×2 (05:30→05:32)
--- NOTE | 2018-11-14 07:47 | Internal Med History&Physical ---
Date of Encounter: 11/14/18 Time of Encounter: 07:44 Internal Medicine - H&P: HPI History of present illness: Ms. Cline is a 63 year old female Past Med Surg Social Fam HX - Past Medical History Medical history: arthritis, CHF, COPD, GERD, hyperlipidemia, hypertension, kidney stones, migraine, renal disease, thyroid disease Psychiatric history: no psych history - Past Surgical History Surgical History: cholecystectomy, hysterectomy Additional surgical history: partial hysterectomy - Social History Smoking Status: Former smoker Smokeless Tobacco Status: No Alcohol use: rarely Drug use: none - Family History Father Hx Family Cancer: Yes Internal Medicine - H&P: Meds Budesonide/Formoterol 80/4.5 [Symbicort 80/4.5] 1 puff IH DAILY 11/14/18 [History] Ergocalciferol (VITAMIN D2) [Vitamin D2] 50,000 unit PO QWEEK 11/14/18 [History] Escitalopram [Lexapro] 20 mg PO DAILY 11/14/18 [History] Esomeprazole Magnesium [Nexium] 40 mg PO DAILY 11/14/18 [History] Furosemide [Lasix] 20 mg PO QPM 11/14/18 [History] Furosemide [Lasix] 40 mg PO QAM 11/14/18 [History] Levothyroxine [Synthroid] 125 mcg PO 0630 11/14/18 [History] Lisinopril [Zestril] 20 mg PO DAILY 11/14/18 [History] Magnesium 250 mg PO DAILY 11/14/18 [History] Potassium Citrate [Urocit-K] 20 meq PO BID 11/14/18 [History] Ropinirole HCl [Requip] 4 mg PO HS 11/14/18 [History] metFORMIN [Glucophage] 500 mg PO DAILY 11/14/18 [History] Allergy/AdvReac Type Severity Reaction Status Date / Time acetaminophen [From Vicodin] AdvReac Palpitation Verified 11/17/17 08:55 s hydrocodone [From Vicodin] AdvReac Palpitation Verified 11/17/17 08:55 s promethazine [From Phenergan] AdvReac Irritable Verified 11/17/17 08:55 All Systems PM: A 10-system review of systems was performed and is negative for pertinent findings except as documented above in the HPI. - Constitutional Vitals: Temp Pulse Resp BP Pulse Ox 99.1 F 102 20 81/57 97 11/14/18 00:47 11/14/18 07:19 11/14/18 07:19 11/14/18 07:19 11/14/18 07:19 Internal Med - H&P Results - Labs CBC & Chem 7: 11/14/18 01:22 11/14/18 01:22 Labs: Short CBC 11/14/18 Range/Units 01:22 WBC 13.3 H (4.3-11.1) K/mcL Hgb 16.2 H (11.5-15.4) g/dL Hct 51.0 H (35.3-44.9) % Plt Count 156 (140-400) K/mcL Neutrophils # 12.0 H (1.6-8.9) K/mcL BMP 11/14/18 01:22 Sodium 136 Potassium 4.9 Chloride 95 L Carbon Dioxide 25 BUN 43 H Creatinine 2.20 H Glucose 128 H Calcium 9.9 Cardiac Enzymes 11/14/18 Range/Units 01:22 Troponin I < 0.03 (< 0.04) ng/mL Liver Function 11/14/18 Range/Units 01:22 Total Bilirubin 1.8 H (0.3-1.0) mg/dL Direct Bilirubin 0.6 H (0.0-0.2) mg/dL AST 28 (13-39) Units/L ALT 27 (7-52) Units/L Alkaline Phosphatase 102 (34-104) Units/L Albumin 4.3 (3.5-5.7) g/dL Urine 11/14/18 Range/Units 02:24 Urine Color Yellow (Yellow) Urine Clarity Turbid A (Clear) Urine pH 5.0 (5.0-8.0) pH Units Ur Specific [place] 1.015 (1.010-1.025) Urine Protein 100 H (Neg-Trace) mg/dL Urine Glucose (UA) Normal (Normal) mg/dL - ABG Interpretation ABG results: 11/14/18 01:51 ABG pH 7.46 H ABG pCO2 33 L ABG pO2 55 L ABG HCO3 23 ABG Total CO2 24 ABG O2 Saturation 90 L ABG Base Excess 0 - Impressions ITS Impressions Chest X-Ray 11/14/18 01:04 IMPRESSION: No acute disease. Pulmonary hypertension. D/ / Juan Diego Guerra MD / Juan Diego Guerra MD Interpreting Provider: Juan Diego Guerra MD Dissection 11/14/18 01:22 IMPRESSION: CHEST No evidence of an acute aortic syndrome. Negative for acute pulmonary embolism. Bilateral lower lobe tree-in-bud nodularity, most suspicious for aspiration related bronchiolitis given basilar distribution and esophageal features of dysmotility and reflux. Enlarged main pulmonary artery and right heart chambers may be seen with pulmonary hypertension. These findings are new since 2009. ABDOMEN/PELVIS Features of volume overload, including small volume abdominal ascites, mesenteric/retroperitoneal edema and soft tissue anasarca. 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 D/ / Sage Abdalla / Sage Abdalla Interpreting Provider: Sage Abdalla Chest X-Ray 11/14/18 03:52 IMPRESSION: Uncomplicated line placement after adjusting the right internal jugular central venous catheter. D/ / Juan Diego Guerra MD / Juan Diego Guerra MD Interpreting Provider: Juan Diego Guerra MD Chest X-Ray 11/14/18 04:11 IMPRESSION: Uncomplicated line placement after adjusting the right internal jugular central venous catheter. D/ / Juan Diego Guerra MD / Juan Diego Guerra MD Interpreting Provider: Juan Diego Guerra MD - Assessment and Plan (1) Septic shock Current Visit: Yes Status: Acute (2) Urinary tract infection Current Visit: Yes Status: Acute Qualifiers: Urinary tract infection type: site unspecified Hematuria presence: without hematuria Qualified Code(s): N39.0 - Urinary tract infection, site not specified (3) Diabetes Current Visit: No Status: Chronic Qualifiers: (4) Obstructive sleep apnea Current Visit: No Status: Chronic (5) DVT prophylaxis Current Visit: No Status: Resolved (6) Acute kidney injury superimposed on CKD Current Visit: Yes Status: Acute - Time Spent With Patient Total time spent is greater than 50% in coordination of care (as documented) at patient's floor/unit and/or counseling patient:
[2018-11-14] MEDS ORDERED: Ondansetron 4 MG/2 ML VIAL IVP PRN (08:02)
[2018-11-14] MEDS ORDERED: Naloxone 0.4 MG/ML INJ IVP PRN (08:02)
--- NOTE | 2018-11-14 08:53 | Pulmonology History & Physical ---
Date of Encounter: 11/14/18 Time of Encounter: 08:53 Assessment and Plan (1) Septic shock Current visit: Yes Status: Acute I spent 33min of Critical Care time with this patient. It involved decision making of high complexity to assess, manipulate, and support vital organ system failure and/or to prevent further life threatening deterioration of the patient's condition. The time involved in the performance of separately reporta ble procedures was not counted toward critical care time. Patient seen and examined at bedside Labs, radiology, chart personally reviewed. Management was reviewed during multidisciplinary critical care rounds. Below reflects my systems based assessment and plan for this critically ill patient LEAD DATA ARCHITECT: The patient is awake and alert there is no focal deficit she is at risk for development of delirium we will continue to monitor for this Pulm: She has a mild respiratory insufficiency and nasal cannula O2 which is likely secondary to hydrostatic pulmonary edema and possibly pneumonia we will continue supplemental oxygen keep saturation around 92% she may need to be placed on BiPAP as I suspect a degree of capillary leak because of sepsis which showed would lead to worsening pulmonary edema factor some evidence of pulmonary edema on her imaging already Cards: Distributive shock secondary to sepsis she is on vasopressor (levophed) goal map around 65. Lactate was initially elevated but has normalized. Patient has a history of heart failure and has mild volume overload unfortunately in the setting of sepsis would to hold off on further diuresis. GI: Abdominal pain improving possibly related to UTI she also has this poorly characterized erythema and bruising which is somewhat of a mystery how this developed as there is no clear antecedent trauma there is no clear pattern of necrosis and this is not commented on on the CT scan of her abdomen done earlier I did consult a general surgeon and felt that no surgical intervention is tender would need to monitor this I did demarcate the area with a felt pen Nutrition: Nothing by mouth for now because of high vasopressor requirements Renal: Acute on chronic kidney injury unfortunately patient has received contrast has been hypotension I have a concern that her renal function will worsen and she has history of horseshoe kidney following was [facility] will consult nephrology to follow this patient with this as there is a concern this may progress to need for temporary or even permanent hemodialysis UOP Monitored, Cont to Trend sCr and monitor Electrolytes. ID: She is on broad-spectrum antibiotics for concern for pneumonia UTI and possible soft tissue infection. De-escalate based upon cultures Heme/Onc: DVT prophylaxis given Endo: Glucose Monitored continue bolus dosing of insulin Integ/MSK: Skin Care per routine ICU Nursing Protocol to prevent ulcers. 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 insulin use: unspecified fdc insulin use status Diabetes mellitus complication status: with other specified complication Qualified Code(s): E11.69 - Type 2 diabetes mellitus with other specified complication (5) Elevated lactic acid level Current visit: Yes Status: Acute (6) Urinary tract infection Current visit: Yes Status: Acute Qualifiers: Urinary tract infection type: site unspecified Hematuria presence: without hematuria Qualified Code(s): N39.0 - Urinary tract infection, site not specified (7) Acute kidney injury superimposed on CKD Current visit: Yes Status: Acute History of Present Illness Chief complaint: Abdominal Pain HPI: Ms. Cline is a 63 year old female presented for worsening abdominal pain. Patien t states that over the last few days she has had abdominal pain with a couple of loose stools. His a past medical history of CHF and COPD along with chronic kidney disease and diabetes. In the emergency room patient was evaluated for aortic dissection with a CT angiogram this was not suggestive of aortic dissection but was notable for these enteric retroperitoneal fat stranding with abdominal ascites. Otherwise borderline horseshoe kidney with scattered coarse nephrolithiasis the hepatobiliary system and otherwise findings were unremarkable except for tree-in-bud opacities within the lung which may be consistent with pneumonia. She did have a urinalysis which was suggestive of urinary tract infection. Patient was noted to be hypotensive despite fluid resuscitation requiring vasopressors she was transferred to the ICU for evaluation of septic shock. When I spoke with her she was actually feeling a bit better from a abdominal pain standpoint she denied any vomiting there was noted a area of erythema and bruising which should been developed itching over the past few hours patient denies any trauma to that region and did not even know that it was there. She denies administered any any injections to the abdominal rate generally including anticoagulants or insulin. She is a former smoker who quit remotely and she also has obstructive sleep apnea but could not tolerate BiPAP mask Denies any hemoptysis or vision changes headaches blood in the stool or urine or rashes Past Med Surg Social Fam HX - Past Medical History Medical history: arthritis, CHF, COPD, GERD, hyperlipidemia, hypertension, kidney stones, migraine, renal disease, thyroid disease Psychiatric history: no psych history - Past Surgical History Surgical History: cholecystectomy, hysterectomy Additional surgical history: partial hysterectomy - Social History Smoking Status: Former smoker Smokeless Tobacco Status: No Alcohol use: rarely Drug use: none - Family History Father Hx Family Cancer: Yes Medications and Allergies Budesonide/Formoterol 80/4.5 [Symbicort 80/4.5] 1 puff IH DAILY 11/14/18 [History] Ergocalciferol (VITAMIN D2) [Vitamin D2] 50,000 unit PO QWEEK 11/14/18 [History] Escitalopram [Lexapro] 20 mg PO DAILY 11/14/18 [History] Esomeprazole Magnesium [Nexium] 40 mg PO DAILY 11/14/18 [History] Furosemide [Lasix] 20 mg PO QPM 11/14/18 [History] Furosemide [Lasix] 40 mg PO QAM 11/14/18 [History] Levothyroxine [Synthroid] 125 mcg PO 0630 11/14/18 [History] Lisinopril [Zestril] 20 mg PO DAILY 11/14/18 [History] Magnesium 250 mg PO DAILY 11/14/18 [History] Potassium Citrate [Urocit-K] 20 meq PO BID 11/14/18 [History] Ropinirole HCl [Requip] 4 mg PO HS 11/14/18 [History] metFORMIN [Glucophage] 500 mg PO DAILY 11/14/18 [History] Allergy/AdvReac Type Severity Reaction Status Date / Time acetaminophen [From Vicodin] AdvReac Palpitation Verified 11/17/17 08:55 s hydrocodone [From Vicodin] AdvReac Palpitation Verified 11/17/17 08:55 s promethazine [From Phenergan] AdvReac Irritable Verified 11/17/17 08:55 All Systems: The remainder of the systems were reviewed and are negative Physical Examination Vital Signs: Vital Signs, Last 4 Hours Pulse Resp BP Pulse Ox 11/14/18 08:15 99 21 68/58 91 11/14/18 07:27 94 22 88/58 93 11/14/18 07:19 102 20 81/57 97 11/14/18 06:10 97 20 77/37 94 11/14/18 06:00 97 16 82/66 97 11/14/18 05:55 96 18 72/58 96 11/14/18 05:50 96 16 85/48 96 11/14/18 05:45 95 18 87/47 94 11/14/18 05:40 94 16 82/50 96 11/14/18 05:35 94 20 99/68 95 11/14/18 05:30 94 20 84/61 96 11/14/18 05:20 94 20 89/55 95 11/14/18 05:15 94 21 80/58 95 11/14/18 05:10 94 20 84/69 95 General appearance: no acute distress Eyes: nonicteric ENT: oropharynx moist Mallampati (class): 4 Neck: supple Effort: normal Auscultation: bilateral: rales Cardiovascular: regular rate and rhythm Gastrointestinal: normoactive bowel sounds, soft, other (Modest tenderness to deep palpation she also has a larger periumbilical erythema with some surrounding bruising without clear features of necrosis but the color is dark purplish hue) Integumentary: normal Extremities: pink and warm, pulses normal, no ischemia or petechiae, edema (b/l ) Musculoskeletal: no deformities normal mental status, non-focal exam, pupils equal and round mood appropriate Results - Laboratory Findings CBC and BMP: 11/14/18 01:22 11/14/18 01:22 ABG ABG pH 7.46 pH Units (7.32-7.45) H 11/14/18 01:51 ABG pCO2 33 mmHg (35-45) L 11/14/18 01:51 ABG pO2 55 mmHg (85-104) L 11/14/18 01:51 ABG O2 Saturation 90 % (95-98) L 11/14/18 01:51 PT/INR, D-dimer PT 13.0 Seconds (9.4-12.1) H 11/14/18 01:22 Abnormal lab findings: Abnormal lab results WBC 13.3 K/mcL (4.3-11.1) H 11/14/18 01:22 RBC 5.39 M/mcL (3.82-4.97) H 11/14/18 01:22 Hgb 16.2 g/dL (11.5-15.4) H 11/14/18 01:22 Hct 51.0 % (35.3-44.9) H 11/14/18 01:22 RDW 16.3 % (11.5-14.5) H 11/14/18 01:22 Neutrophils # 12.0 K/mcL (1.6-8.9) H 11/14/18 01:22 PT 13.0 Seconds (9.4-12.1) H 11/14/18 01:22 ABG pH 7.46 pH Units (7.32-7.45) H 11/14/18 01:51 ABG pCO2 33 mmHg (35-45) L 11/14/18 01:51 ABG pO2 55 mmHg (85-104) L 11/14/18 01:51 ABG O2 Saturation 90 % (95-98) L 11/14/18 01:51 Chloride 95 mEq/L (98-107) L 11/14/18 01:22 BUN 43 mg/dL (8-23) H 11/14/18 01:22 Creatinine 2.20 mg/dL (0.60-1.20) H 11/14/18 01:22 Est GFR ( Amer) 27 (> 60) L 11/14/18 01:22 Est GFR (Non-Af Amer) 22 (> 60) L 11/14/18 01:22 Glucose 128 mg/dL (70-105) H 11/14/18 01:22 Lactic Acid 4.4 mmol/L (0.5-2.2) H* 11/14/18 01:22 Total Bilirubin 1.8 mg/dL (0.3-1.0) H 11/14/18 01:22 Direct Bilirubin 0.6 mg/dL (0.0-0.2) H 11/14/18 01:22 Urine Clarity Turbid (Clear) A 11/14/18 02:24 Urine Protein 100 mg/dL (Neg-Trace) H 11/14/18 02:24 Urine Blood Large (Negative) H 11/14/18 02:24 Ur Leukocyte Esterase Large (Negative) H 11/14/18 02:24 Urine Microscopic RBC TNTC per hpf (0-3) H 11/14/18 02:24 Urine Microscopic WBC TNTC per hpf (0-3) H 11/14/18 02:24 Ur Squamous Epith Cells Many per lpf (None-Few) H 11/14/18 02:24 Amorphous Sediment Many (Few) H 11/14/18 02:24 Urine Bacteria Many per hpf (None-Few) H 11/14/18 02:24 Ur Culture Indicated? YES (NO) A 11/14/18 02:24 - Diagnostic Findings Chest x-ray: report reviewed, image reviewed CT scan - chest: report reviewed, image reviewed
[2018-11-14] MEDS ORDERED: Ringers Solution, Lactated 1,000 ML ONE (10:39)
--- NOTE | 2018-11-14 11:02 | AcuteCare Surgery Consult Note ---
Date of Encounter: 11/14/18 Time of Encounter: 10:56 Assessment and Plan (1) Septic shock Current Visit: Yes Status: Acute 63F admitted with sepsis currently requiring pressors with a finding of skin discoloration; no tenderness, no purulent drainage; uncertain of exact etiology but suspect that her skin changes are apart of the larger sepsis process that is going on; there is no necrosis so there is no need for surgical intervention right now, but there is need for close monitoring; NPO IVF IV abx per ICu wean pressors as tolerated restart home meds to decrease edema and assist with respiratory effort will cont to follow History of Present Illness Consult date: 11/14/18 Reason for consult: other (hypotension, skin discoloration) History of present illness: 63F PMH significant for GERD, obesity, CHF, TIARA, DM, venous insufficiency who presents with two day history of generalized malaise, difficulty breathing, and skin discoloration along abodminal wall and lower extremity. General surgery was consulted for the abdominal wall skin changes. The patient states that she did not bump into anything, had not received any prophylactic dvt injections, nor any other type of trauma. The patient also mentioned that along with her shortness of breath she noted her feet discolored a purple color and swollen. She does take diurectics, but the patient suggested that she has not been taking it as of late due to the cost. No reports of fevers, chills or other systemic symptoms besides what was described. Past Med Surg Social Fam HX - Past Medical History Medical history: arthritis, CHF, COPD, GERD, hyperlipidemia, hypertension, kidney stones, migraine, renal disease, thyroid disease Psychiatric history: no psych history - Past Surgical History Surgical History: cholecystectomy, hysterectomy Additional surgical history: partial hysterectomy - Social History Smoking Status: Former smoker Smokeless Tobacco Status: No Alcohol use: rarely Drug use: none - Family History Father Hx Family Cancer: Yes Medications and Allergies Budesonide/Formoterol 80/4.5 [Symbicort 80/4.5] 1 puff IH DAILY 11/14/18 [History] Ergocalciferol (VITAMIN D2) [Vitamin D2] 50,000 unit PO QWEEK 11/14/18 [History] Escitalopram [Lexapro] 20 mg PO DAILY 11/14/18 [History] Esomeprazole Magnesium [Nexium] 40 mg PO DAILY 11/14/18 [History] Furosemide [Lasix] 20 mg PO QPM 11/14/18 [History] Furosemide [Lasix] 40 mg PO QAM 11/14/18 [History] Levothyroxine [Synthroid] 125 mcg PO 0630 11/14/18 [History] Lisinopril [Zestril] 20 mg PO DAILY 11/14/18 [History] Magnesium 250 mg PO DAILY 11/14/18 [History] Potassium Citrate [Urocit-K] 20 meq PO BID 11/14/18 [History] Ropinirole HCl [Requip] 4 mg PO HS 11/14/18 [History] metFORMIN [Glucophage] 500 mg PO DAILY 11/14/18 [History] Allergy/AdvReac Type Severity Reaction Status Date / Time acetaminophen [From Vicodin] AdvReac Palpitation Verified 11/17/17 08:55 s hydrocodone [From Vicodin] AdvReac Palpitation Verified 11/17/17 08:55 s promethazine [From Phenergan] AdvReac Irritable Verified 11/17/17 08:55 Review of Systems All systems PM: 12 point ROS negative besides HPI findings General Surgery Exam Initial Vital Signs Temp Pulse Resp BP Pulse Ox 99.1 F 111 22 129/69 92 11/14/18 00:47 11/14/18 00:47 11/14/18 00:47 11/14/18 00:47 11/14/18 00:47 - General physical appearance other (mild distress) - Eyes normal ocular movement - ENT normocephalic - Neck trachea midline, no lymphadectomy - Respiratory normal expansion, normal respiratory effort - Cardiovascular Cardiovascular exam: Present: RRR - Abdomen Abdomen general surgery: Present: soft, non tender - Integumentary Integumentary general surgery: Present: warm and dry, other (erythema, dark discoloration; ) - Neurologic Present: CN 2-12 grossly intact - Psychiatric Psychiatric general surgery: Present: A&Ox3 Exam Initial Vital Signs Temp Pulse Resp BP Pulse Ox 99.1 F 111 22 129/69 92 11/14/18 00:47 11/14/18 00:47 11/14/18 00:47 11/14/18 00:47 11/14/18 00:47 Results - Labs 11/14/18 01:22 11/14/18 01:22 Abnormal lab results WBC 13.3 K/mcL (4.3-11.1) H 11/14/18 01:22 RBC 5.39 M/mcL (3.82-4.97) H 11/14/18 01:22 Hgb 16.2 g/dL (11.5-15.4) H 11/14/18 01:22 Hct 51.0 % (35.3-44.9) H 11/14/18 01:22 RDW 16.3 % (11.5-14.5) H 11/14/18 01:22 Neutrophils # 12.0 K/mcL (1.6-8.9) H 11/14/18 01:22 PT 13.0 Seconds (9.4-12.1) H 11/14/18 01:22 ABG pH 7.46 pH Units (7.32-7.45) H 11/14/18 01:51 ABG pCO2 33 mmHg (35-45) L 11/14/18 01:51 ABG pO2 55 mmHg (85-104) L 11/14/18 01:51 ABG O2 Saturation 90 % (95-98) L 11/14/18 01:51 Chloride 95 mEq/L (98-107) L 11/14/18 01:22 BUN 43 mg/dL (8-23) H 11/14/18 01:22 Creatinine 2.20 mg/dL (0.60-1.20) H 11/14/18 01:22 Est GFR ( Amer) 27 (> 60) L 11/14/18 01:22 Est GFR (Non-Af Amer) 22 (> 60) L 11/14/18 01:22 Glucose 128 mg/dL (70-105) H 11/14/18 01:22 Lactic Acid 4.4 mmol/L (0.5-2.2) H* 11/14/18 01:22 Total Bilirubin 1.8 mg/dL (0.3-1.0) H 11/14/18 01:22 Direct Bilirubin 0.6 mg/dL (0.0-0.2) H 11/14/18 01:22 Urine Clarity Turbid (Clear) A 11/14/18 02:24 Urine Protein 100 mg/dL (Neg-Trace) H 11/14/18 02:24 Urine Blood Large (Negative) H 11/14/18 02:24 Ur Leukocyte Esterase Large (Negative) H 11/14/18 02:24 Urine Microscopic RBC TNTC per hpf (0-3) H 11/14/18 02:24 Urine Microscopic WBC TNTC per hpf (0-3) H 11/14/18 02:24 Ur Squamous Epith Cells Many per lpf (None-Few) H 11/14/18 02:24 Amorphous Sediment Many (Few) H 11/14/18 02:24 Urine Bacteria Many per hpf (None-Few) H 11/14/18 02:24 Ur Culture Indicated? YES (NO) A 11/14/18 02:24 Diabetes panel 11/14/18 Range/Units 01:22 Sodium 136 (136-145) mEq/L Potassium 4.9 (3.5-5.1) mEq/L Chloride 95 L (98-107) mEq/L Carbon Dioxide 25 (23-29) mEq/L BUN 43 H (8-23) mg/dL Creatinine 2.20 H (0.60-1.20) mg/dL Glucose 128 H (70-105) mg/dL Calcium 9.9 (8.6-10.3) mg/dL AST 28 (13-39) Units/L ALT 27 (7-52) Units/L Alkaline Phosphatase 102 (34-104) Units/L Albumin 4.3 (3.5-5.7) g/dL Calcium panel 11/14/18 Range/Units 01:22 Calcium 9.9 (8.6-10.3) mg/dL Phosphorus 4.2 (2.7-4.5) mg/dL Albumin 4.3 (3.5-5.7) g/dL Pituitary panel 11/14/18 Range/Units 01:22 Sodium 136 (136-145) mEq/L Potassium 4.9 (3.5-5.1) mEq/L Chloride 95 L (98-107) mEq/L Carbon Dioxide 25 (23-29) mEq/L BUN 43 H (8-23) mg/dL Creatinine 2.20 H (0.60-1.20) mg/dL Glucose 128 H (70-105) mg/dL Calcium 9.9 (8.6-10.3) mg/dL Adrenal panel 08/04/19 Range/Units 01:22 Sodium 136 (136-145) mEq/L Potassium 4.9 (3.5-5.1) mEq/L Chloride 95 L (98-107) mEq/L Carbon Dioxide 25 (23-29) mEq/L BUN 43 H (8-23) mg/dL Creatinine 2.20 H (0.60-1.20) mg/dL Glucose 128 H (70-105) mg/dL Calcium 9.9 (8.6-10.3) mg/dL Total Bilirubin 1.8 H (0.3-1.0) mg/dL AST 28 (13-39) Units/L ALT 27 (7-52) Units/L Alkaline Phosphatase 102 (34-104) Units/L Albumin 4.3 (3.5-5.7) g/dL All other labs normal. Consult Discharge Plan - Plan Referrals: Van Ruffin DO [Primary Care Provider] -
[2018-11-14] MEDS ORDERED: *HR* Midazolam HCl 5 MG/5 ML VIAL IVP ONE (13:12)
[2018-11-14] MEDS ORDERED: *HR* Etomidate 20 MG/10 ML AMPUL IVP ONE (13:12)
[2018-11-14] MEDS ORDERED: *HR* Rocuronium Bromide 100 MG/10 ML VIAL IVC ONE (13:12)
[2018-11-14] MEDS: Norepinephrine 8 MG in D5% in Water 250 ML IVC SCH ×2 (17:30→23:23)
[2018-11-14 17:38] LABS: Hematocrit 47.8 % (35.3-44.9); Hemoglobin 15.2 g/dL (11.5-15.4); Mean Corpuscular HGB Conc 31.8 g/dL (31.6-35.5); Mean Corpuscular Hemoglobin 30.2 pg (28.0-33.3); Mean Platelet Volume 11.2 fL (9.4-12.4); Nucleated Red Blood Cells 0.2 /100 WBC (0); Platelet Count 102 K/mcL (140-400); Red Blood Count 5.03 M/mcL (3.82-4.97); Red Cell Distribution Width 16.4 % (11.5-14.5)
[2018-11-14 17:40] LABS: White Blood Count 23.6 K/mcL (4.3-11.1)
[2018-11-14 17:58] LABS: Calcium 8.7 mg/dL (8.6-10.3); Potassium 4.7 mEq/L (3.5-5.1)
[2018-11-14 17:59] LABS: Lymphocytes # 1.4 K/mcL (0.6-4.6); Monocytes # 1.4 K/mcL (0.0-1.3); Neutrophils # 19.1 K/mcL (1.6-8.9); Platelet Estimate Slight Decrease (Normal); Polychromasia 1+ (Not Present)
[2018-11-14] MEDS ORDERED: Cefepime HCl 2,000 MG in Water for inj. (sterile) 20 ML IVP SCH (18:00)
[2018-11-14] MEDS ORDERED: Vancomycin 500 MG in 0.9 % Sodium Chloride Mini Bag 100 ML IVPB ONE (18:18)
[2018-11-14] MEDS ORDERED: *HR* Metoprolol 5 MG/5 ML VIAL IVP ONE ×2 (23:36→23:42)
[2018-11-14] MEDS ORDERED: D5% in Water 50 ML ONE (23:43)
[2018-11-14] MEDS ORDERED: Dextrose Gel 15 GM/37.5 ML TUBE PO ONE (23:43)
[2018-11-15] MEDS ORDERED: *HR* Dextrose 50 % in Water (Syg) 50 ML SYRINGE IVP ONE (04:16)
[2018-11-15 04:18] LABS: Hematocrit 50.1 % (35.3-44.9); Hemoglobin 15.4 g/dL (11.5-15.4); Mean Corpuscular HGB Conc 30.7 g/dL (31.6-35.5); Mean Corpuscular Hemoglobin 30.3 pg (28.0-33.3); Mean Corpuscular Volume 98.6 fL (83.0-100.0); Mean Platelet Volume 11.6 fL (9.4-12.4); Nucleated Red Blood Cells 0.8 /100 WBC (0); Red Blood Count 5.08 M/mcL (3.82-4.97); Red Cell Distribution Width 16.6 % (11.5-14.5); White Blood Count 23.3 K/mcL (4.3-11.1)
[2018-11-15 04:20] LABS: Platelet Count 81 K/mcL (140-400)
[2018-11-15 04:39] LABS: Lymphocytes # 2.8 K/mcL (0.6-4.6); Monocytes # 3.3 K/mcL (0.0-1.3); Neutrophils # 17.2 K/mcL (1.6-8.9); Platelet Estimate Marked Decrease (Normal)
[2018-11-15 04:45] LABS: Calcium 8.7 mg/dL (8.6-10.3); Potassium 6.7 mEq/L (3.5-5.1)
[2018-11-15] MEDS ORDERED: *HR* Dextrose 50 % in Water (Vial) 50 ML VIAL IVP ONE (04:56)
[2018-11-15] MEDS ORDERED: Insulin Human Regular 10 UNIT in 0.9 % Sodium Chloride 10 ML IV ONE (04:58)
[2018-11-15] MEDS ORDERED: Albuterol 2.5 MG/3 ML NEBULIZER IH ONE (04:59)
[2018-11-15] MEDS ORDERED: Albuterol Neb 1.25 MG/3 ML VIAL IH ONE (04:59)
[2018-11-15] MEDS ORDERED: Calcium Gluconate 2,000 MG in 0.9 % Sodium Chloride 100 ML IVPB ONE (04:59)
[2018-11-15] MEDS ORDERED: Albuterol 2.5 MG/3 ML NEBULIZER ONE (05:02)
[2018-11-15] MEDS: Norepinephrine 8 MG in D5% in Water 250 ML IVC SCH ×3 (07:00→16:41)
--- NOTE | 2018-11-15 07:14 | Pulmonology Progress Note ---
Date of Encounter: 11/15/18 Time of Encounter: 08:29 Assessment and Plan (1) Septic shock Current Visit: Yes Status: Acute Resented to the ED complaining of abdominal pain Likely secondary to UTI Blood pressure was not responsive to fluid resuscitation Was hypotensive at presentation with blood pressure 87/47 This morning blood pressure noted to be 66/49 with maxed on levophed Vasopressin added to increase MAP above 65 Continue to treat underlying infection Zosyn day 1 (2) Urinary tract infection Current Visit: Yes Status: Acute Presented to the ED complaining of abdominal pain CTA of the abdomen showed abdominal ascites Urinalysis shows significant bacteria with leukocyte esterase Urine culture shows gram-negative rods, final results pending Continue Zosyn day 1 Qualifiers: Urinary tract infection type: site unspecified Hematuria presence: without hematuria Qualified Code(s): N39.0 - Urinary tract infection, site not specified (3) Hyperkalemia Current Visit: Yes Status: Acute Presented with potassium 4.9 this morning noted to be 6.7 Has received albuterol nebs, insulin with dextrose Repeat potassium this morning 5.0 at this time 5.4 Plan for CRRT today (4) Acute kidney injury superimposed on CKD Current Visit: Yes Status: Acute Presented with creatinine of 2.20 baseline appears 1.2 This morning creatinine is 3.64 with GFR decreased to 13 She is currently producing minimal amount of urine Urine sodium and urine creatinine pending Nephrology consultation Continue to renally dose medications Renal ultrasound pending Plan for CRRT today (5) Elevated lactic acid level Current Visit: Yes Status: Acute Presented with lactic acid of 4. 4 repeat was 2.0 subsequently yesterday afternoon 4.8 in this morning 5.2 repeat this afternoon 3.3 Likely source is UTI Currently appears euvolemic has received 4 L of fluid Received IV cefepime and IV vancomycin which are stopped Zosyn day 1 for UTI and aspiration pneumonia coverage (6) Hypoglycemia Current Visit: Yes Status: Acute History of diabetes Having episodes of hypoglycemia, unknown etiology Serum random cortisol pending When necessary dextrose ordered (7) Diabetes Current Visit: No Status: Chronic History of diabetes low-dose sliding scale ordered Qualifiers: Diabetes mellitus type: type 2 Diabetes mellitus senior living 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 khanna was seen at bedside this morning. She was awake alert and responding to command. Currently on a BiPAP and her map was in the 50s with levo[hed running. She is denying fever, chills, chest pain, abdominal pain. Objective PUL Vital signs: Last Vital Signs Temp 98.6 F 11/15/18 00:43 Pulse 89 11/15/18 06:00 Resp 20 11/15/18 06:00 BP 100/87 11/15/18 06:00 Pulse Ox 92 11/15/18 06:00 General appearance: no acute distress, alert Eyes: nonicteric ENT: oropharynx moist Auscultation: bilateral: rales Cardiovascular: regular rate and rhythm Gastrointestinal: hypoactive bowel sounds, soft, tender (With deep palpation as well as has a large periumbilical erythema with bruising) Integumentary: other (Cyanotic region on anterior abdomen) Extremities: pink and warm, pulses normal, edema (+2 pitting edema bilateral lower extremity) Musculoskeletal: no deformities pupils equal and round, other mood appropriate, affect normal Results - Laboratory Findings CBC and BMP: 11/15/18 04:05 11/15/18 06:36 ABG ABG pH 7.46 pH Units (7.32-7.45) H 11/14/18 01:51 ABG pCO2 33 mmHg (35-45) L 11/14/18 01:51 ABG pO2 55 mmHg (85-104) L 11/14/18 01:51 ABG O2 Saturation 90 % (95-98) L 11/14/18 01:51 PT/INR, D-dimer PT 13.0 Seconds (9.4-12.1) H 11/14/18 01:22 Abnormal lab findings: Abnormal lab results WBC 23.3 K/mcL (4.3-11.1) H 11/15/18 04:05 RBC 5.08 M/mcL (3.82-4.97) H 11/15/18 04:05 Hgb 16.2 g/dL (11.5-15.4) H 11/14/18 01:22 Hct 50.1 % (35.3-44.9) H 11/15/18 04:05 MCHC 30.7 g/dL (31.6-35.5) L 11/15/18 04:05 RDW 16.6 % (11.5-14.5) H 11/15/18 04:05 Plt Count 81 K/mcL (140-400) L 11/15/18 04:05 Band Neutrophils % 16.0 % (0-4) H 11/15/18 04:05 Metamyelocytes % 5.0 % (0) H 11/14/18 17:30 Myelocytes % 2.0 % (0) H 11/14/18 17:30 Neutrophils # 17.2 K/mcL (1.6-8.9) H 11/15/18 04:05 Monocytes # 3.3 K/mcL (0.0-1.3) H 11/15/18 04:05 Nucleated RBCs/100 WBC 0.8 /100 WBC (0) H 11/15/18 04:05 Platelet Estimate Marked Decrease (Normal) L 11/15/18 04:05 Polychromasia 1+ (Not Present) A 11/14/18 17:30 PT 13.0 Seconds (9.4-12.1) H 11/14/18 01:22 ABG pH 7.46 pH Units (7.32-7.45) H 11/14/18 01:51 ABG pCO2 33 mmHg (35-45) L 11/14/18 01:51 ABG pO2 55 mmHg (85-104) L 11/14/18 01:51 ABG O2 Saturation 90 % (95-98) L 11/14/18 01:51 Sodium 130 mEq/L (136-145) L 11/15/18 04:00 Potassium 5.8 mEq/L (3.5-5.1) H 11/15/18 05:23 Chloride 97 mEq/L (98-107) L 11/15/18 04:00 Carbon Dioxide 18 mEq/L (23-29) L 11/15/18 04:00 BUN 53 mg/dL (8-23) H 11/15/18 04:00 Creatinine 3.64 mg/dL (0.60-1.20) H 11/15/18 04:00 Est GFR ( Amer) 15 (> 60) L 11/15/18 04:00 Est GFR (Non-Af Amer) 13 (> 60) L 11/15/18 04:00 Glucose 25 mg/dL (70-105) L* 11/15/18 04:00 POC Glucose 155 mg/dL (70-99) H 11/15/18 04:56 Lactic Acid 4.8 mmol/L (0.5-2.2) H* 11/14/18 17:30 Total Bilirubin 1.8 mg/dL (0.3-1.0) H 11/14/18 01:22 Direct Bilirubin 0.6 mg/dL (0.0-0.2) H 11/14/18 01:22 Urine Clarity Turbid (Clear) A 11/14/18 02:24 Urine Protein 100 mg/dL (Neg-Trace) H 11/14/18 02:24 Urine Blood Large (Negative) H 11/14/18 02:24 Ur Leukocyte Esterase Large (Negative) H 11/14/18 02:24 Urine Microscopic RBC TNTC per hpf (0-3) H 11/14/18 02:24 Urine Microscopic WBC TNTC per hpf (0-3) H 11/14/18 02:24 Ur Squamous Epith Cells Many per lpf (None-Few) H 11/14/18 02:24 Amorphous Sediment Many (Few) H 11/14/18 02:24 Urine Bacteria Many per hpf (None-Few) H 11/14/18 02:24 Ur Culture Indicated? YES (NO) A 11/14/18 02:24 - Microbiology Findings Microbiology Findings: Microbiology, Last 48 Hours 11/14/18 02:24 Urine Culture - Preliminary Urine,Catheterized (Straight) Culture is incubating. 11/14/18 01:22 Blood Culture - Preliminary Peripheral Venipuncture Culture is incubating and being continuously monitored for growth. Final report to follow. 11/14/18 01:22 Blood Culture - Preliminary Peripheral Venipuncture Culture is incubating and being continuously monitored for growth. Final report to follow. - Clinical Findings Intake & Output: Intake & Output 11/14/18 11/14/18 11/15/18 15:59 23:59 07:59 Intake Total 2384.5 / 3969.0 979.5 / 3969.0 430.1 / 430.1 Output Total 100 / 160 60 / 160 Balance 2284.5 / 3809.0 919.5 / 3809.0 430.1 / 430.1 Weight 149.6 kg 148.5 kg Consult Discharge Plan - Plan Referrals: Van Ruffin DO [Primary Care Provider] -
[2018-11-15] MEDS: Vasopressin 40 UNIT in D5% in Water 100 ML IV SCH (08:32)
--- NOTE | 2018-11-15 08:45 | AcuteCareSurgery Progress Note ---
Date of Encounter: 11/15/18 Time of Encounter: 08:00 Subjective Narrative: The patient is seen and evaluated on morning rounds with the acute care surgery team. She has an area of ecchymosis and discoloration on the right side of the pannus. I personally reviewed the CAT scan. There is no underlying hematoma. There is no underlying abscess. She does have edema of both sides of the pannus on CAT scan but this is not localized to the area of skin discoloration We agree with treatment plans including IV antibiotics. No indication for surgery at this time. We will be glad to follow along with you. Assessment and plan: Continue IV antibiotics. No surgery indicated at this time for skin discoloration of the pannus. We will follow along with you clinically Objective Vital Signs - Last 8 Hours Temp Pulse Resp BP Pulse Ox 11/15/18 08:00 97.9 F 82 18 66/49 93 11/15/18 07:00 88 19 72/60 93 11/15/18 06:00 89 20 100/87 92 11/15/18 05:06 18 90 11/15/18 05:00 76 17 91 11/15/18 04:00 71 16 84/67 92 11/15/18 03:57 113 11/15/18 03:42 20 90 11/15/18 03:00 73 18 124/92 91 11/15/18 02:00 74 20 93 11/15/18 01:00 122 18 157/113 89 Intake and Output 11/14/18 11/15/18 11/15/18 23:59 07:59 15:59 Intake Total 979.5 / 3969.0 688.1 / 688.1 Output Total 60 / 160 10 / 10 Balance 919.5 / 3809.0 688.1 / 678.1 -10 8.1 Intake: IV Fluids 979.5 / 3969.0 688.1 / 688.1 Dextrose 5% 50 ML @ 0 mls/hr . 50 / 50 ROUTE .STK-[facility] ONE Rx#: [id number] HumuLIN R 10 UNIT In 0.9 % 10.1 / 10.1 Sodium Chloride 10 ML @ 1212 mls/hr IV ONCE ONE Rx#: [id number] ALBURX 5% 12.5 gm In 250 ml @ 500 / 500 60 mls/hr IVC .Q4H10M [facility] Rx#: [id number] Levophed 8 MG In Dextrose 5% 459.5 / 1274.0 258 / 258 250 ML @ 8 MCG/MIN 15.48 mls/hr IVC CONT [facility] Rx#:[id number] Maxipime 2,000 MG In Water for 20 / 20 inj. (sterile) 20 ML @ 300 mls/ hr IVP Q24H [facility] Rx#:[id number] ALBURX 5% 12.5 gm In 250 ml @ 250 / 250 60 mls/hr IVPB ONCE ONE Rx#: [id number] Calcium Gluconate 2,000 MG In 0 120 / 120 .9 % Sodium Chloride 100 ML @ 220 mls/hr IVPB ONCE ONE Rx#: [id number] Output: Catheter 60 / 160 Other: Weight 148.5 kg Blood Glucose* 71 155 70 Patient Weight 11/15/18 23:59 Weight 148.5 kg - General physical appearance chronically ill, obese (Profound morbid obesity body mass index 58) - Respiratory other (Breath sounds are equal and clear.) - Cardiovascular Cardiovascular exam: Present: RRR, no murmurs/rubs/gallops (Distant heart sounds secondary to profound morbid obesity) - Abdomen Abdomen: Present: bowel sounds present (Abdominal examination limited by profound morbid obesity. Discoloration of the right side of the pannus is noted. No fluctuance.) - Psychiatric oriented to time, oriented to person, oriented to place, speech is normal, gus ry intact - Labs 11/15/18 04:05 11/15/18 06:36 Diabetes panel 11/14/18 11/15/18 11/15/18 Range/Units 17:30 04:00 05:23 Sodium 133 L 130 L (136-145) mEq/L Potassium 4.7 6.7 H* D 5.8 H (3.5-5.1) mEq/L Chloride 99 97 L (98-107) mEq/L Carbon Dioxide 23 18 L (23-29) mEq/L BUN 49 H 53 H (8-23) mg/dL Creatinine 2.85 H 3.64 H (0.60-1.20) mg/dL Glucose 77 25 L* (70-105) mg/dL Calcium 8.7 8.7 (8.6-10.3) mg/dL 11/15/18 Range/Units 06:36 Sodium (136-145) mEq/L Potassium 5.0 (3.5-5.1) mEq/L Chloride (98-107) mEq/L Carbon Dioxide (23-29) mEq/L BUN (8-23) mg/dL Creatinine (0.60-1.20) mg/dL Glucose (70-105) mg/dL Calcium (8.6-10.3) mg/dL Calcium panel 11/14/18 11/15/18 Range/Units 17:30 04:00 Calcium 8.7 8.7 (8.6-10.3) mg/dL Pituitary panel 11/14/18 11/15/18 11/15/18 Range/Units 17:30 04:00 05:23 Sodium 133 L 130 L (136-145) mEq/L Potassium 4.7 6.7 H* D 5.8 H (3.5-5.1) mEq/L Chloride 99 97 L (98-107) mEq/L Carbon Dioxide 23 18 L (23-29) mEq/L BUN 49 H 53 H (8-23) mg/dL Creatinine 2.85 H 3.64 H (0.60-1.20) mg/dL Glucose 77 25 L* (70-105) mg/dL Calcium 8.7 8.7 (8.6-10.3) mg/dL 11/15/18 Range/Units 06:36 Sodium (136-145) mEq/L Potassium 5.0 (3.5-5.1) mEq/L Chloride (98-107) mEq/L Carbon Dioxide (23-29) mEq/L BUN (8-23) mg/dL Creatinine (0.60-1.20) mg/dL Glucose (70-105) mg/dL Calcium (8.6-10.3) mg/dL Adrenal panel 11/14/18 11/15/18 11/15/18 Range/Units 17:30 04:00 05:23 Sodium 133 L 130 L (136-145) mEq/L Potassium 4.7 6.7 H* D 5.8 H (3.5-5.1) mEq/L Chloride 99 97 L (98-107) mEq/L Carbon Dioxide 23 18 L (23-29) mEq/L BUN 49 H 53 H (8-23) mg/dL Creatinine 2.85 H 3.64 H (0.60-1.20) mg/dL Glucose 77 25 L* (70-105) mg/dL Calcium 8.7 8.7 (8.6-10.3) mg/dL 11/15/18 Range/Units 06:36 Sodium (136-145) mEq/L Potassium 5.0 (3.5-5.1) mEq/L Chloride (98-107) mEq/L Carbon Dioxide (23-29) mEq/L BUN (8-23) mg/dL Creatinine (0.60-1.20) mg/dL Glucose (70-105) mg/dL Calcium (8.6-10.3) mg/dL Consult Discharge Plan - Plan Referrals: Van Ruffin DO [Primary Care Provider] -
[2018-11-15] MEDS ORDERED: D5% in Water 1,000 ML IVC PRN (08:47)
[2018-11-15] MEDS ORDERED: Dextrose Gel 15 GM/37.5 ML TUBE PO PRN ×2 (08:47)
--- NOTE | 2018-11-15 09:52 | Nephrology Consult Note ---
Date of Encounter: 11/15/18 Time of Encounter: 09:51 Assessment and Plan (1) Acute kidney injury superimposed on CKD Current Visit: Yes Status: Acute This is a 63 y/o F with PMHx significant for Chronic Kidney Disease (baseline CKD Stage III), CHF, COPD, DM, Obesity who initially presented to the ED with complaints of worsening abdominal pain. - As of this morning, patient's BUN/Cr = 53/3.64, which has worsening from Cr = 2.85 yesterday, and Cr = 1.0 - 1.5 at baseline. GFR = 13 at present, significantly decreased from baseline CKD Stage III. - Additionally, patient noted to have K = 6.7 as of this morning, and Lactic Acid = 5.2. Treated with Albuterol, calcium gluconate, insulin/dextrose, and kayexalate, and K returned to baseline. - Patient continues to be maintained on Levophed and Vasopressin due to persistent hypotension. - Currently treated with Zosyn due to suspected UTI. Differential Dx: Acute Tubular Necrosis secondary to septic shock with persistent hypotension requiring pressors, Contrast induced nephropathy after CT Dissection study, acute interstitial nephritis secondary to vancomycin PLAN: Nithya is currently being evaluated for acute kidney injury superimposed on chronic kidney injury. JASMINE likely multifactorial, but due to ATN secondary to septic shock requiring pressors vs AARON after CT dissection study vs AIN secondary to vancomycin, or a combination of all the above factors. With worsening creatinine, and evidence of hyperkalemia this AM, it is prudent for her to receive temp HD line, and undergo urgent dialysis. - Interventional Radiology on board. Temp HD line placed - Dialysis planned - Follow up urine studies: calculate FENa with urine Na and urine Cr; urine Eosinophils to eval for AIN - Monitor urine output - Strict Is and Os - Daily weights - Daily BMPs - Renally dose medications - Avoid nephrotoxins - Discussed case with Dr. Kim (2) Hyperkalemia Current Visit: Yes Status: Acute K = 6.7 this AM - S/p Albuterol, calcium gluconate, insulin/dextrose, and kayexalate this AM PLAN: - Temp HD line placed today; plan for dialysis - Monitor BMP - PRN Albuterol, insulin/dextrose, kayexalate, calcium gluconate - Cardiac monitoring (3) Septic shock Current Visit: Yes Status: Acute Management per primary team - Currently managed with Levophed and Vasopressin - BP not responsive to fluids - Likely urosepsis - Prelim urine culture growing gram negative rods PLAN: - Wean off pressors as tolerated - Otherwise further management per primary team - Tx of urosepsis with Abx (4) Urinary tract infection Current Visit: Yes Status: Acute UA suggestive of UTI likely leading to urosepsis - Currently on pressors - Prelim urine culture growing gram negative rods PLAN: - Management per primary team - Cont Abx management Qualifiers: Qualified Code(s): N39.0 - Urinary tract infection, site not specified History of Present Illness - Reason for Consult Consult date: 11/14/18 Acute Kidney Injury, Chronic Kidney Disease Requesting physician: Isaiah Villalta - Chief Complaint Worsening Abdominal Pain - History of Present Illness This is a 63 y/o F with PMHx significant for Chronic Kidney Disease (baseline CKD Stage III), CHF, COPD, DM, Obesity who initially presented to the ED with complaints of worsening abdominal pain. Described worsening abdominal pain x 3d, that then progressed to sudden, severe, sharp, stabbing abdominal pain rated 10/10 associated with bruising across anterior abdominal wall. Additionally noted SOB secondary to pain, worsening edema and erythema of lower extremities. In the ED, Aortic dissection was suspected, and CT Dissection study with IV contrast done. However, no PE or Dissection noted. Lab work did show leukocytosis and lactic acidosis (4.4). Urinalysis was suspicious for UTI. Patient was started empirically on vanc and zosyn, and due to persistent hypotension likely secondary to septic shock, central line placed, and patient started on pressors. Patient was transferred to ICU for further management of Urosepsis. In the ICU, patient's blood pressure did not improve despite fluid resuscitation, and patient required max dose of Levophed and addition of Vasopresin to maintain MAP. Surgery consulted due to abdominal bruising and did not recommend any surgical intervention at this time. However, while in the ICU, patient was noted to have worsening kidney function. Patient has CKD at baseline (Stage III CKD), that has been worsening since patient has been admitted. Patient did receive IV contrast for CT Dissection study, and additionally has been treated with vancomycin and zosyn due to presumed uro sepsis. Nephrology consulted due to worsening JASMINE with history of CKD. As of this morning, patient's BUN/Cr = 53/3.64, which has worsening from Cr = 2.85 yesterday, and Cr = 1.0 - 1.5 at baseline. GFR = 13 at present, significantly decreased from baseline CKD Stage III. Additionally, patient n oted to have K = 6.7 as of this morning, and Lactic Acid = 5.2. Treated with Albuterol, calcium gluconate, insulin/dextrose, and kayexalate, and K returned to baseline. Patient continues to be maintained on Levophed and Vasopressin due to persistent hypotension. Currently treated with Cefepime due to suspected UTI. Past Med Surg Social Fam HX - Past Medical History Attestation: Yes The following information was validated with the patient. Source: old records reviewed, obtained from family Medical history: arthritis, CHF, COPD, GERD, hyperlipidemia, hypertension, kidney stones, migraine, renal disease, thyroid disease Psychiatric history: no psych history - Past Surgical History Surgical History: cholecystectomy, hysterectomy Additional surgical history: partial hysterectomy - Social History Smoking Status: Former smoker Smokeless Tobacco Status: No Alcohol use: rarely Drug use: none - Family History Father Hx Family Cancer: Yes Medications and Allergies Allopurinol [Zyloprim 100 MG] 100 mg PO DAILY 11/14/18 [History] Budesonide/Formoterol 80/4.5 [Symbicort 80/4.5] 2 puff IH BID 11/14/18 [History] Ergocalciferol (VITAMIN D2) [Vitamin D2] 50,000 unit PO QWEEK 11/14/18 [History] Escitalopram [Lexapro] 20 mg PO DAILY 11/14/18 [History] Esomeprazole Magnesium [Nexium] 40 mg PO DAILY 11/14/18 [History] Furosemide [Lasix] 20 mg PO QPM 11/14/18 [History] Furosemide [Lasix] 40 mg PO QAM 11/14/18 [History] Levothyroxine [Synthroid] 125 mcg PO 0630 11/14/18 [History] Lisinopril [Zestril] 20 mg PO DAILY 11/14/18 [History] Magnesium 250 mg PO DAILY 11/14/18 [History] Potassium Citrate [Urocit-K] 20 meq PO BID 11/14/18 [History] Ropinirole HCl [Requip] 4 mg PO HS 11/14/18 [History] metFORMIN [Glucophage] 500 mg PO DAILY 11/14/18 [History] Allergy/AdvReac Type Severity Reaction Status Date / Time acetaminophen [From Vicodin] AdvReac Palpitation Verified 11/17/17 08:55 s hydrocodone [From Vicodin] AdvReac Palpitation Verified 11/17/17 08:55 s promethazine [From Phenergan] AdvReac Irritable Verified 11/17/17 08:55 Review of Systems ROS unobtainable: due to mental status Exam - Vital Signs Vital signs: Initial Vital Signs Temp Pulse Resp BP Pulse Ox 99.1 F 111 22 129/69 92 11/14/18 00:47 11/14/18 00:47 11/14/18 00:47 11/14/18 00:47 11/14/18 00:47 Vital Signs - Last 8 Hours Temp Pulse Resp BP Pulse Ox 11/15/18 09:00 79 20 73/58 92 11/15/18 08:15 84 21 74/59 92 11/15/18 08:00 97.9 F 82 18 66/49 93 11/15/18 07:00 88 19 72/60 93 11/15/18 06:00 89 20 100/87 92 11/15/18 05:06 18 90 11/15/18 05:00 76 17 91 11/15/18 04:00 71 16 84/67 92 11/15/18 03:57 113 11/15/18 03:42 20 90 11/15/18 03:00 73 18 124/92 91 11/15/18 02:00 74 20 93 Intake and Output 11/14/18 11/15/18 11/15/18 23:59 07:59 15:59 Intake Total 979.5 / 3969.0 688.1 / 688.1 Output Total 60 / 160 10 / 10 Balance 919.5 / 3809.0 688.1 / 678.1 -10 678.1 Intake: IV Fluids 979.5 / 3969.0 688.1 / 688.1 Dextrose 5% 50 ML @ 0 mls/hr . 50 / 50 ROUTE .STK-MED ONE Rx#: [id number] HumuLIN R 10 UNIT In 0.9 % 10.1 / 10.1 Sodium Chloride 10 ML @ 1212 mls/hr IV ONCE ONE Rx#: [id number] ALBURX 5% 12.5 gm In 250 ml @ 500 / 500 60 mls/hr IVC .Q4H10M [facility] Rx#: [id number] Levophed 8 MG In Dextrose 5% 459.5 / 1274.0 258 / 258 250 ML @ 8 MCG/MIN 15.48 mls/hr IVC CONT [facility] Rx#:[id number] Maxipime 2,000 MG In Water for 20 / 20 inj. (sterile) 20 ML @ 300 mls/ hr IVP Q24H [facility] Rx#:[id number] ALBURX 5% 12.5 gm In 250 ml @ 250 / 250 60 mls/hr IVPB ONCE ONE Rx#: [id number] Calcium Gluconate 2,000 MG In 0 120 / 120 .9 % Sodium Chloride 100 ML @ 220 mls/hr IVPB ONCE ONE Rx#: [id number] Output: Catheter 60 / 160 10 / 10 Other: Weight 148.5 kg Blood Glucose* 71 155 70 Patient Weight 11/15/18 23:59 Weight 148.5 kg - General Appearance General appearance: well-developed, well-nourished, appears started age, obese EENT: ATNC, PERRL Neck: no JVD, supple Respiratory: clear Cardiology: no murmurs, no rub, no gallops, edema, regular rate, regular rhythm, normal S1, normal S2 Gastrointestinal: normoactive bowel sounds, no tenderness, no guarding, no organomegaly, no masses Integumentary: cool/clammy Additional Comments: Difficult to palpate peripheral pulses; cool distal lower extremities b/l Neurologic: alert and oriented x3 Musculoskeletal: no cyanosis Psychiatric: mood/affect appropriate, cooperative Results - Lab Results 11/15/18 04:05 11/15/18 13:37 Most recent lab results 11/15/18 04:00 Calcium 8.7 - Image Kidney/bladder ultrasound: pending Consult Discharge Plan - Plan Referrals: Van Ruffin DO [Primary Care Provider] -
[2018-11-15] MEDS ORDERED: *HR* Heparin 5,000 UNIT/ML VIAL ONE (11:56)
--- NOTE | 2018-11-15 12:40 | IR Procedure Note ---
Date of procedure: 11/15/18 Consent Obtained: Verbal consent, Written consent Timeout: Correct patient and procedure verified, Correct site verified, Time out performed, Skin prep completed Local anesthetic: Lidocaine 1% Was there an housekeeper/laundry assistant present: No Estimated blood loss (cc): 1 Complications: None; Tolerated procedure well Indications: Renal failure Procedure Performed: Temp HD catheter placement Site/Technique: Temp HD catheter placed in right IJ vein Results/Findings (any specimens removed): Temp HD catheter placed in right IJ vein Post Procedure Treatment Plan: May use HD catheter Specimen: None
[2018-11-15] MEDS: Piperacillin/Tazobactam 3.375 GM in 0.9 % Sodium Chloride Mini Bag 100 ML IVPB SCH ×2 (12:49→19:57)
[2018-11-15] MEDS: Hydrocortisone Sodium Succ 100 MG/2 ML VIAL IVP SCH ×3 (12:50→23:30)
[2018-11-15] MEDS: Pantoprazole 40 MG VIAL IVP SCH (12:53)
[2018-11-15] MEDS: *HR* Dextrose 50 % in Water (Syg) 50 ML SYRINGE IVP PRN ×3 (13:17→21:40)
[2018-11-15] MEDS: Insulin LISPRO 300 UNITS/3 ML VIAL SQ SCH ×3 (13:18→23:34)
--- NOTE | 2018-11-15 14:07 | Electrocardiograph Report ---
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
[2018-11-15 14:34] LABS: Potassium 5.4 mEq/L (3.5-5.1)
--- NOTE | 2018-11-15 15:00 | Electrocardiograph Report ---
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
[2018-11-15] MEDS ORDERED: 0.9 % Sodium Chloride 1,000 ML PRIME ONE ×2 (15:11)
[2018-11-15] MEDS ORDERED: *HR* Heparin 5,000 UNIT/ML VIAL IV PRN (15:11)
[2018-11-15] MEDS ORDERED: *HR* Alteplase (Cathflo) 2 MG VIAL IVP PRN (15:11)
[2018-11-15] MEDS ORDERED: 0.9 % Sodium Chloride 1,000 ML PRIME SCH (15:15)
[2018-11-15] MEDS: PrismaSATE BGK 4/2.5 5,000 ML CRRT SCH ×7 (16:50→23:42)
[2018-11-15 17:28] LABS: VBG HCO3 21 mEq/L (21-27); VBG PCO2 61 mmHg (41-51); VBG PH 7.14 pH Units (7.32-7.42); VBG PO2 52 mmHg (25-50)
[2018-11-15] MEDS: Albumin 25% 25gram/100mL 25 GM/100 ML IV.SOLN IVPB SCH ×2 (17:34→23:31)
[2018-11-15] MEDS ORDERED: *HR* LORazepam 0.5 MG TABLET PO ONE (18:08)
[2018-11-15] MEDS ORDERED: *HR* LORazepam 2 MG/ML VIAL IVP ONE (18:22)
[2018-11-15] MEDS: *HR* Heparin 5,000 UNIT/ML VIAL SQ SCH (18:26)
[2018-11-15] MEDS ORDERED: *HR* FentaNYL (PF) 100 MCG/2 ML VIAL IVP PRN (19:31)
[2018-11-15 19:56] LABS: ABG Base Excess -10 mEq/L (-2 to 3); ABG HCO3 19 mEq/L (21-27); ABG Oxygen Saturation 97 % (95-98); ABG PCO2 49 mmHg (35-45); ABG PH 7.19 pH Units (7.32-7.45); ABG PO2 115 mmHg (85-104); ABG TCO2 20 mEq/L (20-26); Blood Gas PEEP 6 cm H2O
[2018-11-16] MEDS: Norepinephrine 8 MG in D5% in Water 250 ML IVC SCH ×5 (00:52→21:16)
[2018-11-16] MEDS: Vasopressin 40 UNIT in D5% in Water 100 ML IV SCH (02:40)
[2018-11-16] MEDS: Piperacillin/Tazobactam 3.375 GM in 0.9 % Sodium Chloride Mini Bag 100 ML IVPB SCH ×3 (03:15→19:00)
[2018-11-16] MEDS: PrismaSATE BGK 4/2.5 5,000 ML CRRT SCH ×11 (03:16→21:18)
[2018-11-16] MEDS: *HR* Dextrose 50 % in Water (Syg) 50 ML SYRINGE IVP PRN ×3 (03:26→18:50)
[2018-11-16 03:31] LABS: Mean Corpuscular HGB Conc 30.3 g/dL (31.6-35.5); Mean Corpuscular Hemoglobin 30.2 pg (28.0-33.3); Mean Corpuscular Volume 99.8 fL (83.0-100.0)
[2018-11-16 03:33] LABS: Hematocrit 44.6 % (35.3-44.9); Hemoglobin 13.5 g/dL (11.5-15.4); Immature Platelets 19.9 % (1.1-6.1); Lymphocytes # 0.9 K/mcL (0.6-4.6); Mean Platelet Volume 12.1 fL (9.4-12.4); Nucleated Red Blood Cells 0.7 /100 WBC (0); Red Blood Count 4.47 M/mcL (3.82-4.97); Red Cell Distribution Width 16.3 % (11.5-14.5); White Blood Count 23.3 K/mcL (4.3-11.1)
[2018-11-16 03:39] LABS: Albumin 4.3 g/dL (3.5-5.7); Albumin/Globulin Ratio 2.5 (1.1-2.2); Bilirubin,Direct 2.4 mg/dL (0.0-0.2); Bilirubin,Indirect 1.6 mg/dL (0.0-1.2); Calcium 7.9 mg/dL (8.6-10.3); Globulin 1.7 g/dL (2.4-3.5); Potassium 5.9 mEq/L (3.5-5.1)
[2018-11-16 03:47] LABS: Platelet Count 41 K/mcL (140-400)
[2018-11-16 04:25] LABS: Monocytes # 0.5 K/mcL (0.0-1.3); Neutrophils # 18.6 K/mcL (1.6-8.9)
[2018-11-16 04:26] LABS: Large Platelets Present (Not Present)
[2018-11-16 04:28] LABS: Platelet Estimate Marked Decrease (Normal); Toxic Granulation Present (Not Present)
[2018-11-16] MEDS: Albumin 25% 25gram/100mL 25 GM/100 ML IV.SOLN IVPB SCH ×2 (04:57→11:20)
[2018-11-16] MEDS: *HR* Heparin 5,000 UNIT/ML VIAL SQ SCH ×2 (05:00→21:32)
[2018-11-16] MEDS: Hydrocortisone Sodium Succ 100 MG/2 ML VIAL IVP SCH ×4 (05:00→23:59)
[2018-11-16] MEDS: Insulin LISPRO 300 UNITS/3 ML VIAL SQ SCH ×3 (05:05→21:32)
[2018-11-16 05:09] LABS: ABG Base Excess -14 mEq/L (-2 to 3); ABG HCO3 15 mEq/L (21-27); ABG Oxygen Saturation 97 % (95-98); ABG PCO2 45 mmHg (35-45); ABG PH 7.13 pH Units (7.32-7.45); ABG PO2 113 mmHg (85-104); ABG TCO2 16 mEq/L (20-26); Blood Gas PEEP 7 cm H2O
[2018-11-16] MEDS ORDERED: Sodium Bicarbonate 50 MEQ/50 ML VIAL IVP ONE (05:13)
[2018-11-16] MEDS ORDERED: Haloperidol Lactate 5 MG/ML VIAL IVP ONE (05:18)
[2018-11-16] MEDS ORDERED: Haloperidol Lactate 5 MG/ML VIAL ONE (05:21)
[2018-11-16 07:50] LABS: INR 3.1; Prothrombin Time 35.1 Seconds (9.4-12.1)
--- NOTE | 2018-11-16 07:56 | Pulmonology Progress Note ---
Date of Encounter: 11/16/18 Time of Encounter: 07:54 Assessment and Plan (1) Septic shock Current Visit: Yes Status: Acute Resented to the ED complaining of abdominal pain Likely secondary to UTI urine showing Escherichia coli Blood pressure was not responsive to fluid resuscitation Continues to require Levophed and vasopressin to keep MAP above 65 Epinephrine ordered as the third pressor Continue to treat underlying infection Zosyn day [address] chest pending (2) Shock liver Current Visit: Yes Status: Acute Shock liver likely secondary to septic shock AST 28 and ALT 27 on 11/14/18 Repeat AST 2385 and ALT 1565 on 11/15/18 Total bilirubin 4.0 with both indirect and direct elevated Continues to have increased requirement for pressors INR is elevated at 3.1 Concern for DIC D-dimer, PTT, fibrinogen, LDH, haptoglobin and peripheral blood smear ordered CT abd and pelvis pending (3) Urinary tract infection Current Visit: Yes Status: Acute Presented to the ED complaining of abdominal pain CTA of the abdomen showed abdominal ascites Urinalysis shows significant bacteria with leukocyte esterase Urine culture shows Escherichia coli sensitive to Zosyn Continue Zosyn day 2 Qualifiers: Urinary tract infection type: site unspecified Hematuria presence: without hematuria Qualified Code(s): N39.0 - Urinary tract infection, site not specified (4) Hyperkalemia Current Visit: Yes Status: Acute Yesterday potassium went up to 6.7 received insulin, dextrose and albuterol This morning potassium was 5.9 On continuous renal replacement therapy (5) Acute kidney injury superimposed on CKD Current Visit: Yes Status: Acute Presented with creatinine of 2.20 baseline appears 1.2 This morning creatinine is 2.40 improved from 3.64 yesterday She is currently producing minimal amount of urine Urine sodium and urine creatinine pending Nephrology consultation Continue to renally dose medications Renal ultrasound shows horseshoe kidney, no hydronephrosis noted On continuous renal replacement therapy (6) Elevated lactic acid level Current Visit: Yes Status: Acute Presented with lactic acid of 4.4 repeat was 2.0 subsequently yesterday afternoon 3.3 This morning lactic acid noted to be 8.6 Likely source is UTI Currently appears euvolemic has received 4 L of fluid Received IV cefepime and IV vancomycin which are stopped Zosyn day 2 for UTI and aspiration pneumonia coverage Intubated due to ongoing acidosis and worsening respiratory status (7) Hypoglycemia Current Visit: Yes Status: Acute History of diabetes Please secondary to shock liver Having episodes of hypoglycemia, unknown etiology On stress dose steroids D10 drip ordered (8) Diabetes Current Visit: No Status: Chronic History of diabetes low-dose sliding scale ordered Qualifiers: Diabetes mellitus type: type 2 Diabetes mellitus assisted insulin use: uns pecified assisted insulin use status Diabetes mellitus complication status: with other specified complication Qualified Code(s): E11.69 - Type 2 diabetes mellitus with other specified complication (9) Metabolic acidosis Current Visit: Yes Status: Acute PH this morning 7.13 with bicarbonate was 16 Received 50 mEq bicarbonate push this morning Concerning for worsening renal failure Nephrology consulted, currently on continuous renal replacement therapy (10) DVT prophylaxis Current Visit: No Status: Acute Subcutaneous heparin Subjective Interval history: Ms. Cline was seen at bedside this morning. Her vitals are reviewed and was noted that she had temperature of 95.3 overnight. Additionally she appeared more confused this morning was not responding appropriately to questions. Objective PUL Vital signs: Last Vital Signs Temp 95.3 F L 11/16/18 04:00 Pulse 82 11/16/18 07:00 Resp 18 11/16/18 07:00 BP 70/49 11/16/18 07:00 Pulse Ox 87 11/16/18 06:00 General appearance: other (Appears confused) Eyes: nonicteric ENT: oropharynx moist Auscultation: bilateral: diminished breath sounds (Lower lung bases) Cardiovascular: regular rate and rhythm Gastrointestinal: hypoactive bowel sounds, tender Integumentary: normal Extremities: no cyanosis, other (+1 Pitting bilateral lower extremities) Musculoskeletal: no deformities pupils equal and round, unable to assess due to mental status other (Confused and not oriented) Results - Laboratory Findings CBC and BMP: 11/16/18 03:10 11/16/18 03:10 ABG ABG pH 7.13 pH Units (7.32-7.45) L* 11/16/18 05:01 ABG pCO2 45 mmHg (35-45) 11/16/18 05:01 ABG pO2 113 mmHg (85-104) H 11/16/18 05:01 ABG O2 Saturation 97 % (95-98) 11/16/18 05:01 PT/INR, D-dimer PT 35.1 Seconds (9.4-12.1) H D 11/16/18 07:23 Abnormal lab findings: Abnormal lab results WBC 23.3 K/mcL (4.3-11.1) H 11/16/18 03:10 RBC 5.08 M/mcL (3.82-4.97) H 11/15/18 04:05 Hgb 16.2 g/dL (11.5-15.4) H 11/14/18 01:22 Hct 50.1 % (35.3-44.9) H 11/15/18 04:05 MCHC 30.3 g/dL (31.6-35.5) L 11/16/18 03:10 RDW 16.3 % (11.5-14.5) H 11/16/18 03:10 Plt Count 41 K/mcL (140-400) L 11/16/18 03:10 Band Neutrophils % 12.0 % (0-4) H 11/16/18 03:10 Metamyelocytes % 8.0 % (0) H 11/16/18 03:10 Myelocytes % 6.0 % (0) H 11/16/18 03:10 Neutrophils # 18.6 K/mcL (1.6-8.9) H 11/16/18 03:10 Monocytes # 3.3 K/mcL (0.0-1.3) H 11/15/18 04:05 Nucleated RBCs/100 WBC 0.7 /100 WBC (0) H 11/16/18 03:10 Toxic Granulation Present (Not Present) A 11/16/18 03:10 Platelet Estimate Marked Decrease (Normal) L 11/16/18 03:10 Large Platelets Present (Not Present) A 11/16/18 03:10 Immature Plt Fraction 19.9 % (1.1-6.1) H 11/16/18 03:10 Polychromasia 1+ (Not Present) A 11/14/18 17:30 PT 35.1 Seconds (9.4-12.1) H D 11/16/18 07:23 ABG pH 7.13 pH Units (7.32-7.45) L* 11/16/18 05:01 ABG pCO2 49 mmHg (35-45) H 11/15/18 19:48 ABG pO2 113 mmHg (85-104) H 11/16/18 05:01 ABG HCO3 15 mEq/L (21-27) L 11/16/18 05:01 ABG Total CO2 16 mEq/L (20-26) L 11/16/18 05:01 ABG O2 Saturation 90 % (95-98) L 11/14/18 01:51 ABG Base Excess -14 mEq/L (-2 to 3) L 11/16/18 05:01 VBG pH 7.14 pH Units (7.32-7.42) L* 11/15/18 17:22 VBG pCO2 61 mmHg (41-51) H 11/15/18 17:22 VBG pO2 52 mmHg (25-50) H 11/15/18 17:22 Sodium 133 mEq/L (136-145) L 11/16/18 03:10 Potassium 5.9 mEq/L (3.5-5.1) H 11/16/18 03:10 Chloride 97 mEq/L (98-107) L 11/15/18 04:00 Carbon Dioxide 20 mEq/L (23-29) L 11/16/18 03:10 BUN 36 mg/dL (8-23) H 11/16/18 03:10 Creatinine 2.40 mg/dL (0.60-1.20) H 11/16/18 03:10 Est GFR ( Amer) 25 (> 60) L 11/16/18 03:10 Est GFR (Non-Af Amer) 20 (> 60) L 11/16/18 03:10 Glucose 54 mg/dL (70-105) L 11/16/18 03:10 POC Glucose 52 mg/dL (70-99) L 11/16/18 03:08 Lactic Acid 3.6 mmol/L (0.5-2.2) H 11/15/18 13:37 Calcium 7.9 mg/dL (8.6-10.3) L 11/16/18 03:10 Total Bilirubin 4.0 mg/dL (0.3-1.0) H 11/16/18 03:10 Direct Bilirubin 2.4 mg/dL (0.0-0.2) H 11/16/18 03:10 Indirect Bilirubin 1.6 mg/dL (0.0-1.2) H 11/16/18 03:10 AST 2385 Units/L (13-39) H 11/16/18 03:10 ALT 1565 Units/L (7-52) H 11/16/18 03:10 Serum Total Protein 6.0 g/dL (6.4-8.9) L 11/16/18 03:10 Globulin 1.7 g/dL (2.4-3.5) L 11/16/18 03:10 Albumin/Globulin Ratio 2.5 (1.1-2.2) H 11/16/18 03:10 Urine Clarity Turbid (Clear) A 11/14/18 02:24 Urine Protein 100 mg/dL (Neg-Trace) H 11/14/18 02:24 Urine Blood Large (Negative) H 11/14/18 02:24 Ur Leukocyte Esterase Large (Negative) H 11/14/18 02:24 Urine Microscopic RBC TNTC per hpf (0-3) H 11/14/18 02:24 Urine Microscopic WBC TNTC per hpf (0-3) H 11/14/18 02:24 Ur Squamous Epith Cells Many per lpf (None-Few) H 11/14/18 02:24 Amorphous Sediment Many (Few) H 11/14/18 02:24 Urine Bacteria Many per hpf (None-Few) H 11/14/18 02:24 Ur Culture Indicated? YES (NO) A 11/14/18 02:24 - Microbiology Findings Microbiology Findings: Microbiology, Last 48 Hours 11/14/18 02:24 Urine Culture - Final Urine,Catheterized (Straight) Escherichia coli 11/14/18 01:22 Blood Culture - Preliminary Peripheral Venipuncture Culture is incubating and being continuously monitored for growth. Final report to follow. 11/14/18 01:22 Blood Culture - Preliminary Peripheral Venipuncture Culture is incubating and being continuously monitored for growth. Final report to follow. - Clinical Findings Intake & Output: Intake & Output 11/15/18 11/15/18 11/16/18 15:59 23:59 07:59 Intake Total 258 / 1536.3 590.2 / 1536.3 857.8 / 857.8 Output Total 380 / 425 517 / 517 Balance 248 / 1111.3 210.2 / 1111.3 340.8 / 340.8 Weight 165 kg 152.1 kg Consult Discharge Plan - Plan Referrals: Van Ruffin DO [Primary Care Provider] -
[2018-11-16 08:17] LABS: Thyroid Stimulating Hormone 10.761 mcIU/mL (0.340-5.600)
[2018-11-16] MEDS: Pantoprazole 40 MG VIAL IVP SCH (08:39)
[2018-11-16] MEDS ORDERED: 0.9 % Sodium Chloride 500 ML ONE (09:22)
--- NOTE | 2018-11-16 10:04 | Procedure Note ---
Date of procedure: 11/16/18 Pre-op diagnosis: Hypotension, respiratory failure, shock Post-op diagnosis: same Procedure: Informed consent was implied in the setting of urgent/emergent situation (unable to obtain blood pressure following intubation). A timeout was performed prior to the procedure. The area of the left radial artery was cleaned and draped. The site was anesthetized with subcutaneous lidocaine. Utilizing ultrasound guidance the artery was cannulated and a wire was passed into the artery. The catheter was advanced into the artery and sutured into place. Good waveform noted on the monitor. A sterile dressing was placed. No untoward events. Anesthesia: none Was there an patient care assistant present: No Estimated blood loss (cc): 5 Specimen: None
[2018-11-16] MEDS ORDERED: *HR* FentaNYL (PF) 100 MCG/2 ML VIAL IVP PRN (10:23)
--- NOTE | 2018-11-16 10:31 | AcuteCareSurgery Progress Note ---
<Linda Lang - Last Filed: 11/16/18 10:28> Date of Encounter: 11/16/18 Time of Encounter: 07:45 - Assessment and Plan (1) Septic shock Current Visit: Yes Status: Acute Suspect urosepsis. Management per primary team. There is no acute surgery indicated for the discoloration the pannus. Surgery will sign off at this time. Thank you for allowing us to participate in Nithya's care. Please call or reconsult if any further questions or needs arise Subjective Narrative: Unable to obtain ROS d/t mental status. Bedside RN reports patient is declining. Objective Vital Signs - Last 8 Hours Temp Pulse Resp BP Pulse Ox 11/16/18 09:17 24 88/56 11/16/18 08:00 79 19 96/78 92 11/16/18 07:00 82 18 70/49 11/16/18 06:00 84 16 89/49 87 11/16/18 05:00 68 23 11/16/18 04:04 69 11/16/18 04:00 95.3 F L 68 19 113/83 88 11/16/18 03:49 16 113/83 90 11/16/18 03:00 65 20 61/50 Intake and Output 11/15/18 11/16/18 11/16/18 23:59 07:59 15:59 Intake Total 590.2 / 1536.3 857.8 / 885.8 28 / 885.8 Output Total 380 / 425 517 / 599 82 / 599 Balance 210.2 / 1111.3 340.8 / 286.8 -54 / 286.8 Intake: IV Fluids 590.2 / 1536.3 857.8 / 885.8 28 / 885.8 PrismaSATE BGK 4/2.5 5,000 ML @ 0 / 0 0 / 0 1500 mls/hr CRRT CONT CYNDI Rx#: [id number] Vasostrict 40 UNIT In Dextrose 46.2 / 46.2 55.8 / 55.8 5% 100 ML @ 0.03 UNIT/MIN 4.59 mls/hr IV .[id number] CYNDI Rx#: [id number] Levophed 8 MG In Dextrose 5% 344 / 860 402 / 430 28 / 430 250 ML @ 8 MCG/MIN 15.48 mls/hr IVC CONT CYNDI Rx#:[id number] Flexbumin 25 gm In 100 ml @ 60 100 / 100 200 / 200 mls/hr IVPB Q6H CYNDI Rx#: [id number] Zosyn 3.375 GM In 0.9 % Sodium 100 / 100 200 / 200 Chloride (Mini-Bag +) 100 ML @ 25 mls/hr IVPB Q8H CYNDI Rx#: [id number] Output: Emma 79 / 79 41 / 41 Catheter 0 / 10 0 / 0 0 / 0 Fluid Removed by Prismaflex 301 / 336 517 / 558 41 / 558 Other: Weight 165 kg 152.1 kg Blood Glucose* 54 79 Patient Weight 11/16/18 23:59 Weight 152.1 kg - General physical appearance moderate distress (pulling at lines) - ENT atraumatic, normocephalic, Other (Bipap noted) - Respiratory other (decreased effort) - Cardiovascular Cardiovascular exam: Present: distant heart sounds - Integumentary other (Widespread areas of ecchymosis noted. Localization on the right abdomen noted.) - Labs 11/16/18 03:10 11/16/18 03:10 Diabetes panel 11/15/18 11/16/18 Range/Units 13:37 03:10 Sodium 133 L (136-145) mEq/L Potassium 5.4 H 5.9 H (3.5-5.1) mEq/L Chloride 100 (98-107) mEq/L Carbon Dioxide 20 L (23-29) mEq/L BUN 36 H (8-23) mg/dL Creatinine 2.40 H (0.60-1.20) mg/dL Glucose 54 L (70-105) mg/dL Calcium 7.9 L (8.6-10.3) mg/dL AST 2385 H (13-39) Units/L ALT 1565 H (7-52) Units/L Alkaline Phosphatase 47 (34-104) Units/L Albumin 4.3 (3.5-5.7) g/dL Thyroid panel 11/16/18 Range/Units 07:23 TSH 10.761 H (0.340-5.600) mcIU/mL Calcium panel 11/16/18 Range/Units 03:10 Calcium 7.9 L (8.6-10.3) mg/dL Albumin 4.3 (3.5-5.7) g/dL Pituitary panel 11/15/18 11/16/18 11/16/18 Range/Units 13:37 03:10 07:23 Sodium 133 L (136-145) mEq/L Potassium 5.4 H 5.9 H (3.5-5.1) mEq/L Chloride 100 (98-107) mEq/L Carbon Dioxide 20 L (23-29) mEq/L BUN 36 H (8-23) mg/dL Creatinine 2.40 H (0.60-1.20) mg/dL Glucose 54 L (70-105) mg/dL Calcium 7.9 L (8.6-10.3) mg/dL TSH 10.761 H (0.340-5.600) mcIU/mL Adrenal panel 11/15/18 11/16/18 Range/Units 13:37 03:10 Sodium 133 L (136-145) mEq/L Potassium 5.4 H 5.9 H (3.5-5.1) mEq/L Chloride 100 (98-107) mEq/L Carbon Dioxide 20 L (23-29) mEq/L BUN 36 H (8-23) mg/dL Creatinine 2.40 H (0.60-1.20) mg/dL Glucose 54 L (70-105) mg/dL Calcium 7.9 L (8.6-10.3) mg/dL Total Bilirubin 4.0 H (0.3-1.0) mg/dL AST 2385 H (13-39) Units/L ALT 1565 H (7-52) Units/L Alkaline Phosphatase 47 (34-104) Units/L Albumin 4.3 (3.5-5.7) g/dL Consult Discharge Plan - Plan Referrals: Van Ruffin DO [Primary Care Provider] - <Ricky Marsh - Last Filed: 11/16/18 14:38> Date of Encounter: 11/16/18 Objective Vital Signs - Last 8 Hours Temp Pulse Resp BP Pulse Ox 11/16/18 14:00 97 F L 70 30 86/59 94 11/16/18 13:23 30 83/60 94 11/16/18 13:00 70 30 78/55 94 11/16/18 12:00 79 30 93/61 95 11/16/18 11:15 24 86/56 94 11/16/18 11:00 86 24 89/59 94 11/16/18 10:00 86 24 88/57 93 11/16/18 09:17 24 88/56 11/16/18 09:00 81 17 87/68 91 11/16/18 08:00 79 19 96/78 92 11/16/18 07:00 82 18 70/49 Intake and Output 11/15/18 11/16/18 11/16/18 23:59 07:59 15:59 Intake Total 590.2 / 1536.3 857.8 / 1143.8 286 / 1143.8 Output Total 380 / 425 517 / 1497 980 / 1497 Balance 210.2 / 1111.3 340.8 / -353.2 -694 / -353.2 Intake: IV Fluids 590.2 / 1536.3 857.8 / 1143.8 286 / 1143.8 PrismaSATE BGK 4/2.5 5,000 ML @ 0 / 0 0 / 0 0 / 0 1500 mls/hr CRRT CONT CYNDI Rx#: [id number] Vasostrict 40 UNIT In Dextrose 46.2 / 46.2 55.8 / 55.8 5% 100 ML @ 0.03 UNIT/MIN 4.59 mls/hr IV .[id number] CYNDI Rx#: [id number] Levophed 8 MG In Dextrose 5% 344 / 860 402 / 688 286 / 688 250 ML @ 8 MCG/MIN 15.48 mls/hr IVC CONT CYNDI Rx#:[id number] Flexbumin 25 gm In 100 ml @ 60 100 / 100 200 / 200 mls/hr IVPB Q6H CYNDI Rx#: [id number] Zosyn 3.375 GM In 0.9 % Sodium 100 / 100 200 / 200 Chloride (Mini-Bag +) 100 ML @ 25 mls/hr IVPB Q8H CYNDI Rx#: [id number] Output: Emma 79 / 79 523 / 523 Catheter 0 / 10 0 / 0 0 / 0 Fluid Removed by Prismaflex 301 / 336 517 / 974 457 / 974 Other: Weight 165 kg 152.1 kg Blood Glucose* 54 79 58 Patient Weight 11/16/18 23:59 Weight 152.1 kg - Labs 11/16/18 03:10 11/16/18 03:10 Diabetes panel 08/05/19 08/06/19 Range/Units 13:37 03:10 Sodium 133 L (136-145) mEq/L Potassium 5.4 H 5.9 H (3.5-5.1) mEq/L Chloride 100 (98-107) mEq/L Carbon Dioxide 20 L (23-29) mEq/L BUN 36 H (8-23) mg/dL Creatinine 2.40 H (0.60-1.20) mg/dL Glucose 54 L (70-105) mg/dL Calcium 7.9 L (8.6-10.3) mg/dL AST 2385 H (13-39) Units/L ALT 1565 H (7-52) Units/L Alkaline Phosphatase 47 (34-104) Units/L Albumin 4.3 (3.5-5.7) g/dL Thyroid panel 11/16/18 Range/Units 07:23 TSH 10.761 H (0.340-5.600) mcIU/mL Calcium panel 11/16/18 Range/Units 03:10 Calcium 7.9 L (8.6-10.3) mg/dL Albumin 4.3 (3.5-5.7) g/dL Pituitary panel 11/15/18 11/16/18 11/16/18 Range/Units 13:37 03:10 07:23 Sodium 133 L (136-145) mEq/L Potassium 5.4 H 5.9 H (3.5-5.1) mEq/L Chloride 100 (98-107) mEq/L Carbon Dioxide 20 L (23-29) mEq/L BUN 36 H (8-23) mg/dL Creatinine 2.40 H (0.60-1.20) mg/dL Glucose 54 L (70-105) mg/dL Calcium 7.9 L (8.6-10.3) mg/dL TSH 10.761 H (0.340-5.600) mcIU/mL Adrenal panel 11/15/18 11/16/18 Range/Units 13:37 03:10 Sodium 133 L (136-145) mEq/L Potassium 5.4 H 5.9 H (3.5-5.1) mEq/L Chloride 100 (98-107) mEq/L Carbon Dioxide 20 L (23-29) mEq/L BUN 36 H (8-23) mg/dL Creatinine 2.40 H (0.60-1.20) mg/dL Glucose 54 L (70-105) mg/dL Calcium 7.9 L (8.6-10.3) mg/dL Total Bilirubin 4.0 H (0.3-1.0) mg/dL AST 2385 H (13-39) Units/L ALT 1565 H (7-52) Units/L Alkaline Phosphatase 47 (34-104) Units/L Albumin 4.3 (3.5-5.7) g/dL - Attending Attestation I have personally performed a face to face evaluation on this patient. I have reviewed and agree with the care plan. History and Exam by me shows: The patient is seen and evaluated on morning rounds with the acute care surgery team. She looks a bit worse today. She is having significant dyspnea. The discoloration on the anterior portion of the right pannus is stable. There is no underlying fluctuance or fluid collection. She continues with aggressive treatment for urosepsis. Surgery has little to add at this point Ricky Marsh MD FACS
[2018-11-16 11:19] LABS: Mixed Venous Blood pCO2 63 mmHg (44-46); Mixed Venous Blood pH 7.14 pH Units (7.34-7.36); Mixed Venous Blood pO2 43 mmHg (35-45)
--- NOTE | 2018-11-16 11:30 | Procedure Note ---
Date of procedure: 11/16/18 Pre-op diagnosis: respiratory distress Post-op diagnosis: same Procedure: A time-out was completed verifying correct patient, procedure, site, positioning, and special equipment if applicable. The patient was placed in a flat position. Sedation was obtained using 10 etomidate, 4 of versed and 100 of rocuronium. The patient was easily ventilated using an ambu bag. The GLIDESCOPE was used and inserted into the oropharynx at which time there was a Grade 1 view of the vocal cords. A 7.5-telugu endotracheal tube was inserted and visualized going through the vocal cords. The stylette was removed. Colorimetric change was visualized on the CO2 meter. Breath sounds were heard in both lung guaman equally. The endotracheal tube was placed at 22 cm, measured at the teeth. Dr. Agee was present for the entire procedure. A chest x-ray was ordered to assess for pneumothorax and verify endotrachealtube placement. Anesthesia: IV sedation Surgeon: Flor Mix Was there an inventory assistant present: Yes School Physical Therapist: Hernesto Agee Estimated blood loss (cc): 0 Specimen: none Pathology: none sent Condition: critical Disposition: no change
[2018-11-16 11:31] LABS: ABG Base Excess -9 mEq/L (-2 to 3); ABG HCO3 20 mEq/L (21-27); ABG Oxygen Saturation 97 % (95-98); ABG PCO2 55 mmHg (35-45); ABG PH 7.18 pH Units (7.32-7.45); ABG PO2 115 mmHg (85-104); ABG TCO2 22 mEq/L (20-26); Blood Gas PEEP 8 cm H2O; Blood Gas VT 400 cc
[2018-11-16] MEDS ORDERED: D10% in Water 500 ML IV SOLUTION IVC SCH (11:45)
--- NOTE | 2018-11-16 13:03 | Nephrology Progress Note ---
Date of Encounter: 11/16/18 Time of Encounter: 13:01 - Assessment and Plan (1) Acute kidney injury superimposed on CKD Current Visit: Yes Status: Acute Patient is currently being managed for acute kidney injury superimposed on chronic kidney injury. JASMINE multifactorial, due to ATN secondary to septic shock requiring pressors vs AARON after CT dissection study vs vancomycin exposure, or a combination of all the above factors. With worsening creatinine, and evidence of hyperkalemia she was started on dialysis. She is dialysis dependent. She remains critically ill. Continue CVVHDF. Adjust medications as needed for renal function. Avoid nephrotoxic agents. 32 minutes spent in the care of this critically ill patient. (2) Morbid obesity Current Visit: Yes Status: Acute (3) Hyperkalemia Current Visit: Yes Status: Acute dialysis. (4) Metabolic acidosis Current Visit: Yes Status: Acute improving with dialysis. (5) Septic shock Current Visit: Yes Status: Acute Patient with severe sepsis. She is on multiple vasopressors. She is receiving antibiotics and treating underlying infection. Her prognosis is poor. (6) Shock liver Current Visit: Yes Status: Acute No citrate. (7) Urinary tract infection Current Visit: Yes Status: Acute Qualifiers: Urinary tract infection type: site unspecified Hematuria presence: without hematuria Qualified Code(s): N39.0 - Urinary tract infection, site not specified (8) Diabetes Current Visit: No Status: Chronic Qualifiers: Diabetes mellitus type: type 2 Diabetes mellitus watermelon inspector insulin use: unspecified watermelon inspector insulin use status Diabetes mellitus complication status: with other specified complication Qualified Code(s): E11.69 - Type 2 diabetes mellitus with other specified complication (9) Respiratory failure Current Visit: Yes Status: Acute She is on the ventilator Qualifiers: Qualified Code(s): J96.90 - Respiratory failure, unspecified, unspecified whether with hypoxia or hypercapnia Subjective Principal diagnosis: JASMINE/CKD Interval history: Patient seen and evaluated. She is intubated, sedated and critically ill. ROS unobtainable. She remains on CVVHDF. Objective - Vital Signs Vital signs: Vital Signs Temp Pulse Resp BP Pulse Ox 11/16/18 11:15 24 86/56 94 11/16/18 11:00 86 24 89/59 94 11/16/18 10:00 86 24 88/57 93 11/16/18 09:17 24 88/56 11/16/18 09:00 81 17 87/68 91 11/16/18 08:00 79 19 96/78 92 11/16/18 07:00 82 18 70/49 11/16/18 06:00 84 16 89/49 87 11/16/18 05:00 68 23 11/16/18 04:04 69 11/16/18 04:00 95.3 F L 68 19 113/83 88 11/16/18 03:49 16 113/83 90 11/16/18 03:00 65 20 61/50 11/16/18 02:00 65 19 103/78 11/16/18 01:00 66 16 67/54 89 11/16/18 00:00 65 18 116/99 97 11/15/18 23:46 66 11/15/18 23:10 18 124/62 90 11/15/18 23:00 69 18 124/62 90 11/15/18 22:00 69 23 104/92 11/15/18 21:00 68 17 86/72 89 11/15/18 20:35 16 91 11/15/18 20:00 97.7 F 68 23 148/64 91 11/15/18 19:00 68 18 104/91 93 11/15/18 18:00 79 20 135/91 92 11/15/18 17:00 82 18 108/93 92 11/15/18 16:00 78 20 70/54 94 11/15/18 15:00 77 18 76/54 93 11/15/18 14:00 82 19 98/75 93 Intake and Output 11/15/18 11/16/18 11/16/18 23:59 07:59 15:59 Intake Total 590.2 / 1536.3 857.8 / 885.8 28 885.8 Output Total 380 / 425 517 / 941 424 / 941 Balance 210.2 / 1111.3 340.8 / -55.2 -396 / -55.2 Intake: IV Fluids 590.2 / 1536.3 857.8 / 885.8 28 885.8 PrismaSATE BGK 4/2.5 5,000 ML @ 0 / 0 0 / 0 1500 mls/hr CRRT CONT CYNDI Rx#: [id number] Vasostrict 40 UNIT In Dextrose 46.2 / 46.2 55.8 / 55.8 5% 100 ML @ 0.03 UNIT/MIN 4.59 mls/hr IV .[id number] CYNDI Rx#: [id number] Levophed 8 MG In Dextrose 5% 344 / 860 402 / 430 28 / 430 250 ML @ 8 MCG/MIN 15.48 mls/hr IVC CONT CYNDI Rx#:[id number] Flexbumin 25 gm In 100 ml @ 60 100 / 100 200 / 200 mls/hr IVPB Q6H CYNDI Rx#: [id number] Zosyn 3.375 GM In 0.9 % Sodium 100 / 100 200 / 200 Chloride (Mini-Bag +) 100 ML @ 25 mls/hr IVPB Q8H CYNDI Rx#: [id number] Output: Emma 79 / 79 245 / 245 Catheter 0 / 10 0 / 0 0 / 0 Fluid Removed by Prismaflex 301 / 336 517 / 696 179 / 696 Other: Weight 165 kg 152.1 kg Blood Glucose* 54 79 Patient Weight 11/16/18 23:59 Weight 152.1 kg - General Appearance General appearance: Present: well-developed, well-nourished, obese, sedated on ventilator, intubated EENT: Present: ATNC Neck: Present: supple Respiratory: Present: course breath sounds Cardiology: Present: edema, regular rate Dialysis Vascular Access: Venous Catheter Gastrointestinal: Present: no tenderness, obese Integumentary: Present: warm and dry Additional Comments: intubated Additional Comments: intubated. - Lab 11/16/18 03:10 11/16/18 03:10 Most recent lab results 11/16/18 11/16/18 11/16/18 03:10 05:01 11:25 ABG pH 7.13 L* 7.18 L* ABG pCO2 45 55 H ABG pO2 113 H 115 H ABG HCO3 15 L 20 L ABG O2 Saturation 97 97 Calcium 7.9 L Consult Discharge Plan - Plan Referrals: Van Ruffin DO [Primary Care Provider] -
[2018-11-16] MEDS ORDERED: Aminoglycoside Consult 1 EACH MC ONE (13:12)
[2018-11-16] MEDS: D10% in Water 500 ML IVC SCH (19:00)
[2018-11-16] MEDS ORDERED: 0.9 % Sodium Chloride 250 ML ONE (20:22)
[2018-11-17] MEDS: PrismaSATE BGK 4/2.5 5,000 ML CRRT SCH ×15 (00:32→21:19)
[2018-11-17] MEDS: Insulin LISPRO 300 UNITS/3 ML VIAL SQ SCH ×4 (00:38→17:31)
[2018-11-17] MEDS: Norepinephrine 8 MG in D5% in Water 250 ML IVC SCH ×5 (01:10→19:20)
[2018-11-17] MEDS: Vasopressin 40 UNIT in D5% in Water 100 ML IV SCH (03:05)
[2018-11-17] MEDS: Piperacillin/Tazobactam 3.375 GM in 0.9 % Sodium Chloride Mini Bag 100 ML IVPB SCH ×3 (03:17→19:53)
[2018-11-17 04:19] LABS: Hemoglobin 14.6 g/dL (11.5-15.4); Mean Corpuscular Hemoglobin 30.5 pg (28.0-33.3)
[2018-11-17 04:20] LABS: Hematocrit 46.1 % (35.3-44.9); Mean Corpuscular HGB Conc 31.7 g/dL (31.6-35.5); Mean Corpuscular Volume 96.2 fL (83.0-100.0); Mean Platelet Volume 11.8 fL (9.4-12.4); Red Blood Count 4.79 M/mcL (3.82-4.97); Red Cell Distribution Width 16.6 % (11.5-14.5)
[2018-11-17 04:27] LABS: INR 3.8
[2018-11-17 04:32] LABS: Prothrombin Time 43.3 Seconds (9.4-12.1)
[2018-11-17 04:34] LABS: Platelet Count 20 K/mcL (140-400)
[2018-11-17 04:48] LABS: Lymphocytes # 0.5 K/mcL (0.6-4.6); Monocytes # 3.1 K/mcL (0.0-1.3); Neutrophils # 21.8 K/mcL (1.6-8.9)
[2018-11-17 04:49] LABS: Platelet Estimate Marked Decrease (Normal)
[2018-11-17 04:49] LABS: ABG Base Excess -7 mEq/L (-2 to 3); ABG HCO3 19 mEq/L (21-27); ABG Oxygen Saturation 98 % (95-98); ABG PCO2 38 mmHg (35-45); ABG PH 7.31 pH Units (7.32-7.45); ABG PO2 117 mmHg (85-104); ABG TCO2 20 mEq/L (20-26); Blood Gas Modality AF; Blood Gas PEEP 8 cm H2O; Blood Gas VT 400 cc
[2018-11-17 05:00] LABS: Albumin 4.6 g/dL (3.5-5.7); Albumin/Globulin Ratio 3.1 (1.1-2.2); Bilirubin,Direct 4.2 mg/dL (0.0-0.2); Bilirubin,Indirect 3.2 mg/dL (0.0-1.2); Bilirubin,Total 7.4 mg/dL (0.3-1.0); Calcium 8.5 mg/dL (8.6-10.3); Globulin 1.5 g/dL (2.4-3.5); Potassium 5.3 mEq/L (3.5-5.1); Total Protein 6.1 g/dL (6.4-8.9)
[2018-11-17] MEDS: *HR* Heparin 5,000 UNIT/ML VIAL SQ SCH ×2 (05:40→17:30)
[2018-11-17] MEDS: Hydrocortisone Sodium Succ 100 MG/2 ML VIAL IVP SCH ×3 (05:55→17:28)
[2018-11-17] MEDS: D10% in Water 500 ML IVC SCH ×2 (05:56→12:41)
--- NOTE | 2018-11-17 07:06 | Pulmonology Progress Note ---
Date of Encounter: 11/17/18 Time of Encounter: 07:03 Assessment and Plan (1) Septic shock Current Visit: Yes Status: Acute Resented to the ED complaining of abdominal pain Likely secondary to UTI urine showing Escherichia coli Blood pressure was not responsive to fluid resuscitation Continues to require Levophed and vasopressin to keep MAP above 65 Epinephrine ordered as the third pressor Continue to treat underlying infection Zosyn day [address] chest do not show any acute abnormalities (2) Multiple organ system failure Current Visit: Yes Status: Acute Ms. shah is requiring 2 pressors for pressure support Additionally her liver function is worsening with total bilirubin of 7.4 and AST of 2012 and ALT of 1573 The counts have decreased to 20 Continues to have renal failure on continuous renal replacement therapy Have discussed with the family about poor outcome to multiorgan involvement (3) Shock liver Current Visit: Yes Status: Acute Shock liver likely secondary to septic shock AST 28 and ALT 27 on 11/14/18 Repeat AST 2012 and ALT 1573 Total bilirubin 7.4 with both indirect and direct elevated Continues to have increased requirement for pressors INR is elevated at 3.8 Concern for DIC D-dimer is extremely elevated 6245, PT this morning is 43.3 and PTT yesterday was 43 (4) Urinary tract infection Current Visit: Yes Status: Acute Presented to the ED complaining of abdominal pain CTA of the abdomen showed abdominal ascites Urinalysis shows significant bacteria with leukocyte esterase Urine culture shows Escherichia coli sensitive to Zosyn Continue Zosyn day 3 Qualifiers: Urinary tract infection type: site unspecified Hematuria presence: without hematuria Qualified Code(s): N39.0 - Urinary tract infection, site not specified (5) Hyperkalemia Current Visit: Yes Status: Acute Yesterday potassium went up to 6.7 received insulin, dextrose and albuterol This morning potassium was 5.3 On continuous renal replacement therapy (6) Acute kidney injury superimposed on CKD Current Visit: Yes Status: Acute Presented with creatinine of 2.20 baseline appears 1.2 This morning creatinine is 1.74 improved from 2.40 yesterday She is currently producing minimal amount of urine Urine sodium and urine creatinine pending Nephrology consultation Continue to renally dose medications Renal ultrasound shows horseshoe kidney, no hydronephrosis noted On continuous renal replacement therapy (7) Elevated lactic acid level Current Visit: Yes Status: Acute Lactic acid noted to be 8.5 yesterday Likely source is UTI with multi organ system failure Zosyn day 3 for UTI and aspiration pneumonia coverage Intubated due to ongoing acidosis and worsening respiratory status (8) Hypoglycemia Current Visit: Yes Status: Acute History of diabetes Please secondary to shock liver Having episodes of hypoglycemia, unknown etiology On stress dose steroids D10 drip ordered (9) Diabetes Current Visit: No Status: Chronic Having episodes of hypoglycemia not requiring any insulin at this time Qualifiers: Diabetes mellitus type: type 2 Diabetes mellitus technician terminal and repeater insulin use: unspecified technician terminal and repeater insulin use status Diabetes mellitus complication status: with other specified complication Qualified Code(s): E11.69 - Type 2 diabetes mellitus with other specified complication (10) DVT prophylaxis Current Visit: No Status: Acute Subcutaneous heparin Subjective Principal diagnosis: JASMINE/CKD Interval history: Ms. Shah was seen at bedside this morning. Her vitals are reviewed and she remained afebrile overnight. Continues to require pressors to normalize blood pressure. Continues not respond to command. Objective PUL Vital signs: Last Vital Signs Temp 95.9 F L 11/17/18 04:00 Pulse 67 11/17/18 07:00 Resp 32 11/17/18 07:00 BP 87/59 11/17/18 07:00 Pulse Ox 99 11/17/18 07:00 General appearance: no acute distress Eyes: nonicteric ENT: oropharynx moist Auscultation: bilateral: diminished breath sounds Gastrointestinal: absent bowel sounds, other (Abdomen is hard with palpation, continues to have erythematous region on her abdomen) Extremities: no edema Musculoskeletal: no deformities other (Has a gag reflex) Ventilator Settings Ventilator Settings: Ventilator Settings, Last 8 Hours Ventilator Tidal Volume 400 Setting Ventilator Tidal Volume 400 Setting Ventilator Tidal Volume 400 Setting Ventilator Tidal Volume 400 Setting Ventilator Tidal Volume 400 Setting Ventilator Tidal Volume 400 Setting Ventilator Tidal Volume 400 Setting Ventilator Tidal Volume 400 Setting Ventilator Tidal Volume 400 Setting Ventilator Tidal Volume 400 Setting Ventilator Tidal Volume 400 Setting Ventilator Tidal Volume 400 Setting Ventilator Tidal Volume 400 Setting Ventilator Respiratory Rate 30 Setting Ventilator Respiratory Rate 30 Setting Ventilator Respiratory Rate 30 Setting Ventilator Respiratory Rate 30 Setting Ventilator Respiratory Rate 30 Setting Ventilator Respiratory Rate 30 Setting Ventilator Respiratory Rate 30 Setting Ventilator Respiratory Rate 30 Setting Ventilator Respiratory Rate 30 Setting Ventilator Respiratory Rate 30 Setting Ventilator Respiratory Rate 30 Setting Ventilator Respiratory Rate 30 Setting Ventilator Respiratory Rate 30 Setting Actual Respiratory Rate 30 Actual Respiratory Rate 31 Actual Respiratory Rate 31 Actual Respiratory Rate 32 Actual Respiratory Rate 30 Actual Respiratory Rate 30 Actual Respiratory Rate 32 Actual Respiratory Rate 31 Actual Respiratory Rate 31 Actual Respiratory Rate 31 Actual Respiratory Rate 33 Actual Respiratory Rate 34 Positive End Expiratory 8 Pressure Positive End Expiratory 8 Pressure Positive End Expiratory 8 Pressure Positive End Expiratory 8 Pressure Positive End Expiratory 8 Pressure Positive End Expiratory 8 Pressure Positive End Expiratory 8 Pressure Positive End Expiratory 8 Pressure Positive End Expiratory 8 Pressure Positive End Expiratory 8 Pressure Positive End Expiratory 8 Pressure Positive End Expiratory 8 Pressure Positive End Expiratory 8 Pressure Peak Inspiratory Airway 29 Pressure Peak Inspiratory Airway 20 Pressure Peak Inspiratory Airway 32 Pressure Peak Inspiratory Airway 27 Pressure Peak Inspiratory Airway 30 Pressure Peak Inspiratory Airway 26 Pressure Peak Inspiratory Airway 29 Pressure Peak Inspiratory Airway 26 Pressure Peak Inspiratory Airway 29 Pressure Peak Inspiratory Airway 26 Pressure Peak Inspiratory Airway 25 Pressure Peak Inspiratory Airway 29 Pressure Results - Laboratory Findings CBC and BMP: 11/17/18 03:58 11/17/18 03:58 ABG ABG pH 7.31 pH Units (7.32-7.45) L 11/17/18 04:46 ABG pCO2 38 mmHg (35-45) 11/17/18 04:46 ABG pO2 117 mmHg (85-104) H 11/17/18 04:46 ABG O2 Saturation 98 % (95-98) 11/17/18 04:46 PT/INR, D-dimer PT 43.3 Seconds (9.4-12.1) H* 11/17/18 03:58 D-Dimer 6245 ng/mLFEU (0-500) H 11/16/18 11:10 Abnormal lab findings: Abnormal lab results WBC 26.0 K/mcL (4.3-11.1) H 11/17/18 03:58 RBC 5.08 M/mcL (3.82-4.97) H 11/15/18 04:05 Hgb 16.2 g/dL (11.5-15.4) H 11/14/18 01:22 Hct 46.1 % (35.3-44.9) H 11/17/18 03:58 MCHC 30.3 g/dL (31.6-35.5) L 11/16/18 03:10 RDW 16.6 % (11.5-14.5) H 11/17/18 03:58 Plt Count 20 K/mcL (140-400) L* D 11/17/18 03:58 Band Neutrophils % 6.0 % (0-4) H 11/17/18 03:58 Metamyelocytes % 2.0 % (0) H 11/17/18 03:58 Myelocytes % 6.0 % (0) H 11/16/18 03:10 Neutrophils # 21.8 K/mcL (1.6-8.9) H 11/17/18 03:58 Lymphocytes # 0.5 K/mcL (0.6-4.6) L 11/17/18 03:58 Monocytes # 3.1 K/mcL (0.0-1.3) H 11/17/18 03:58 Nucleated RBCs/100 WBC 2.0 /100 WBC (0) H 11/17/18 03:58 Toxic Granulation Present (Not Present) A 11/16/18 03:10 Platelet Estimate Marked Decrease (Normal) L 11/17/18 03:58 Large Platelets Present (Not Present) A 11/16/18 03:10 Immature Plt Fraction 19.9 % (1.1-6.1) H 11/16/18 03:10 Polychromasia 1+ (Not Present) A 11/14/18 17:30 PT 43.3 Seconds (9.4-12.1) H* 11/17/18 03:58 APTT 43.0 Seconds (26.0-36.0) H 11/16/18 11:10 D-Dimer 6245 ng/mLFEU (0-500) H 11/16/18 11:10 ABG pH 7.31 pH Units (7.32-7.45) L 11/17/18 04:46 ABG pCO2 55 mmHg (35-45) H 11/16/18 11:25 ABG pO2 117 mmHg (85-104) H 11/17/18 04:46 ABG HCO3 19 mEq/L (21-27) L 11/17/18 04:46 ABG Total CO2 16 mEq/L (20-26) L 11/16/18 05:01 ABG O2 Saturation 90 % (95-98) L 11/14/18 01:51 ABG Base Excess -7 mEq/L (-2 to 3) L 11/17/18 04:46 VBG pH 7.14 pH Units (7.32-7.42) L* 11/15/18 17:22 VBG pCO2 61 mmHg (41-51) H 11/15/18 17:22 VBG pO2 52 mmHg (25-50) H 11/15/18 17:22 Mixed VBG pH 7.14 pH Units (7.34-7.36) L 11/16/18 11:16 Mixed VBG pCO2 63 mmHg (44-46) H 11/16/18 11:16 Sodium 130 mEq/L (136-145) L 11/17/18 03:58 Potassium 5.3 mEq/L (3.5-5.1) H 11/17/18 03:58 Chloride 97 mEq/L (98-107) L 11/17/18 03:58 Carbon Dioxide 21 mEq/L (23-29) L 11/17/18 03:58 BUN 25 mg/dL (8-23) H 11/17/18 03:58 Creatinine 1.74 mg/dL (0.60-1.20) H 11/17/18 03:58 Est GFR ( Amer) 36 (> 60) L 11/17/18 03:58 Est GFR (Non-Af Amer) 29 (> 60) L 11/17/18 03:58 Glucose 135 mg/dL (70-105) H 11/17/18 03:58 POC Glucose 112 mg/dL (70-99) H 11/17/18 06:12 Calculated Osmolality 276 (280-300) L 11/17/18 03:58 Lactic Acid 8.5 mmol/L (0.5-2.2) H* 11/16/18 07:23 Calcium 8.5 mg/dL (8.6-10.3) L 11/17/18 03:58 Total Bilirubin 7.4 mg/dL (0.3-1.0) H 11/17/18 03:58 Direct Bilirubin 4.2 mg/dL (0.0-0.2) H 11/17/18 03:58 Indirect Bilirubin 3.2 mg/dL (0.0-1.2) H 11/17/18 03:58 AST 2012 Units/L (13-39) H 11/17/18 03:58 ALT 1573 Units/L (7-52) H 11/17/18 03:58 Lactate Dehydrogenase 2060 Units/L (140-271) H 11/16/18 07:23 Serum Total Protein 6.1 g/dL (6.4-8.9) L 11/17/18 03:58 Globulin 1.5 g/dL (2.4-3.5) L 11/17/18 03:58 Albumin/Globulin Ratio 3.1 (1.1-2.2) H 11/17/18 03:58 TSH 10.761 mcIU/mL (0.340-5.600) H 11/16/18 07:23 Urine Clarity Turbid (Clear) A 11/14/18 02:24 Urine Protein 100 mg/dL (Neg-Trace) H 11/14/18 02:24 Urine Blood Large (Negative) H 11/14/18 02:24 Ur Leukocyte Esterase Large (Negative) H 11/14/18 02:24 Urine Microscopic RBC TNTC per hpf (0-3) H 11/14/18 02:24 Urine Microscopic WBC TNTC per hpf (0-3) H 11/14/18 02:24 Ur Squamous Epith Cells Many per lpf (None-Few) H 11/14/18 02:24 Amorphous Sediment Many (Few) H 11/14/18 02:24 Urine Bacteria Many per hpf (None-Few) H 11/14/18 02:24 Ur Culture Indicated? YES (NO) A 11/14/18 02:24 - Microbiology Findings Microbiology Findings: Microbiology, Last 48 Hours 11/14/18 02:24 Urine Culture - Final Urine,Catheterized (Straight) Escherichia coli - Clinical Findings Intake & Output: Intake & Output 11/16/18 11/16/18 11/17/18 15:59 23:59 07:59 Intake Total 386 / 2395.6 990.3 / 2395.6 920.3 / 920.3 Output Total 1358 / 3079 1012 / 3079 1797 / 1797 Balance -972 / -683.4 -21.7 / -683.4 -876.7 / -876.7 Weight 150.4 kg Consult Discharge Plan - Plan Referrals: Van Ruffin DO [Primary Care Provider] -
[2018-11-17] MEDS: EPINEPHrine 5 MG in D5% in Water 250 ML IVC SCH (08:45)
[2018-11-17] MEDS: Pantoprazole 40 MG VIAL IVP SCH (08:55)
[2018-11-17] MEDS ORDERED: Artificial Tears SOLN 15 ML BOTTLE BOTH EYES PRN (08:56)
--- NOTE | 2018-11-17 08:58 | Nephrology Progress Note ---
Date of Encounter: 11/17/18 Time of Encounter: 08:57 - Assessment and Plan (1) Acute kidney injury superimposed on CKD Current Visit: Yes Status: Acute This is a 63 y/o F with PMHx significant for Chronic Kidney Disease (baseline CKD Stage III), CHF, COPD, DM, Obesity who initially presented to the ED with complaints of worsening abdominal pain. - Patient continues to be maintained on Levophed and Vasopressin due to persistent hypotension; additionally have added epinephrine - Currently treated with Zosyn due to suspected UTI. Urine culture did grow Escherichia coli, with susceptibility to Zosyn - BUN/creatinine improving = 25/1.74 this a.m. (Baseline creatinine = 1.0-1.5. Baseline GFR = CKD stage III) - Continues to make minimal amount of urine PLAN: Patient does have improving renal status on continuous renal replacement therapy. BUN and creatinine are improving. However patient still is not making urine. Additionally, patient is requiring 2 pressors for blood pressure support, with addition of epinephrine as well. She is exhibiting multisystem organ failure. Urine culture did grow Escherichia coli, and suspected that septic shock resulting from urosepsis. Currently managed with Zosyn, but patient has poor prognosis. Patient's acute kidney injury was likely multifactorial. At this point, kidney injury is likely secondary to septic shock causing acute necrosis. Nonetheless, patient is responding to renal replacement therapy. We will continue to monitor. - Continue with CVVHDF - Monitor urine output - Follow up when necessary symptoms - Strict Is and Os - Daily weights - Daily BMPs - Renally dose medications - Avoid nephrotoxins - Discussed case with Dr. Kim (2) Hyperkalemia Current Visit: Yes Status: Acute Patient initially presented with hyperkalemia - S/p Albuterol, calcium gluconate, insulin/dextrose, and kayexalate - Temporary hemodialysis catheter was placed and patient underwent urgent hemodialysis - Currently maintained on CVVHDF - Potassium this a.m. = 5.3 PLAN: - Continue CVVHDF - Monitor BMP - PRN Albuterol, insulin/dextrose, kayexalate, calcium gluconate - Cardiac monitoring (3) Urinary tract infection Current Visit: Yes Status: Acute UA suggestive of UTI likely leading to urosepsis - Currently on pressors - Urine culture grew Escherichia coli. PLAN: - Management per primary team - Cont Abx management Qualifiers: Urinary tract infection type: site unspecified Hematuria presence: without hematuria Qualified Code(s): N39.0 - Urinary tract infection, site not specified (4) Septic shock Current Visit: Yes Status: Acute Management per primary team - Currently managed with Levophed and Vasopressin; addition of epinephrine - BP not responsive to fluids - Likely urosepsis - Urine culture did grow Escherichia coli. Susceptible to Zosyn. Currently managed with Zosyn. PLAN: - Patient exhibiting signs of multiorgan system failure. Maintained on pressors. - Otherwise further management per primary team - Tx of urosepsis with Abx Subjective Principal diagnosis: JASMINE/CKD Interval history: Patient is sedated and intubated at time of examination. Requiring 3 different pressors for pressure support. Otherwise remains afebrile. Oxygen saturation appropriate on mechanical ventilation. Continues on renal replacement therapy. Making very little urine output. Prognosis is poor. Objective - Vital Signs Vital signs: Vital Signs Temp Pulse Resp BP Pulse Ox 11/17/18 08:00 95.7 F L 67 30 78/55 99 11/17/18 07:17 30 98 11/17/18 07:00 67 32 87/59 99 11/17/18 06:00 68 33 88/61 99 11/17/18 05:11 31 95/63 98 11/17/18 05:00 68 32 96/63 98 11/17/18 04:00 95.9 F L 66 31 106/69 99 11/17/18 03:46 30 106/69 100 11/17/18 03:00 69 32 103/67 100 11/17/18 02:11 31 99/67 97 11/17/18 02:00 68 31 101/67 95 11/17/18 01:00 69 31 105/68 100 11/17/18 00:23 32 97 11/17/18 00:00 95.2 F L 70 34 97/63 99 11/16/18 23:00 71 32 101/66 95 11/16/18 22:24 30 90/61 97 11/16/18 22:00 72 30 87/57 97 11/16/18 21:00 80 30 92/61 96 11/16/18 20:00 95.1 F L 81 30 90/60 94 11/16/18 19:58 30 93 11/16/18 19:30 81 30 81/57 94 11/16/18 18:00 71 30 96/55 93 11/16/18 17:39 30 87/61 93 11/16/18 17:00 70 30 88/58 93 11/16/18 16:41 30 86/60 93 11/16/18 16:00 96.2 F L 65 30 79/59 94 11/16/18 15:00 68 30 85/62 94 11/16/18 14:00 97 F L 70 30 86/59 94 11/16/18 13:23 30 83/60 94 11/16/18 13:00 70 30 78/55 94 11/16/18 12:00 79 30 93/61 95 11/16/18 11:15 24 86/56 94 11/16/18 11:00 86 24 89/59 94 11/16/18 10:00 86 24 88/57 93 11/16/18 09:17 24 88/56 11/16/18 09:00 81 17 87/68 91 Intake and Output 11/16/18 11/17/18 11/17/18 23:59 07:59 15:59 Intake Total 990.3 / 2395.6 1047.6 / 1047.6 Output Total 1012 / 3079 1797 / 2035 238 / 2035 Balance -21.7 / -683.4 -749.4 / -987.4 -238 / -987.4 Intake: IV Fluids 990.3 / 2395.6 1047.6 / 1047.6 PrismaSATE BGK 4/2.5 5,000 ML @ 0 / 0 0 / 0 1500 mls/hr CRRT CONT CYNDI Rx#: [id number] Vasostrict 40 UNIT In Dextrose 31.4 / 91.5 87.6 / 87.6 5% 100 ML @ 0.03 UNIT/MIN 4.59 mls/hr IV .[id number] CYNDI Rx#: [id number] Dextrose 10% Water 500 Ml Ivbag 146.6 / 170.8 197.7 / 197.7 500 ML @ 50 mls/hr IVC .Q10H CYNDI Rx#:[id number] Levophed 8 MG In Dextrose 5% 652.1 / 1411.7 524.3 / 524.3 250 ML @ 8 MCG/MIN 15.48 mls/hr IVC CONT CYNDI Rx#:[id number] Diprivan 1,000 mg In 100 ml @ 112.1 / 121.6 96.3 / 96.3 20 MCG/KG/MIN 18.252 mls/hr IVC .Q5H29M CYNDI Rx#:[id number] Zosyn 3.375 GM In 0.9 % Sodium 48.1 / 400.0 141.7 / 141.7 Chloride (Mini-Bag +) 100 ML @ 25 mls/hr IVPB Q8H CYNDI Rx#: [id number] Oral 0 / 0 0 / 0 Output: Emma 369 / 1177 891 / 1010 119 / 1010 Catheter 0 / 0 15 / 15 Gastric Drainage 400 / 400 0 / 0 Fluid Removed by Prismaflex 243 / 1502 891 / 1010 119 / 1010 Other: Weight 150.4 kg Blood Glucose* 162 112 Patient Weight 11/17/18 23:59 Weight 150.4 kg - General Appearance General appearance: Present: well-developed, well-nourished, appears started age, obese, severe distress, sedated on ventilator, intubated EENT: Present: ATNC, PERRL Neck: Present: supple Additional Comments: Diminished breath sounds bilaterally Cardiology: Present: normal S1, normal S2 Gastrointestinal: Present: hypoactive bowel sounds Integumentary: Present: no rash, cool/clammy Additional Comments: Purple, [place], blackening of the distal upper and lower extremities - Lab 11/17/18 03:58 11/17/18 03:58 Most recent lab results 11/17/18 11/17/18 03:58 04:46 ABG pH 7.31 L ABG pCO2 38 ABG pO2 117 H ABG HCO3 19 L ABG O2 Saturation 98 Calcium 8.5 L Consult Discharge Plan - Plan Referrals: Van Ruffin DO [Primary Care Provider] -
[2018-11-17] MEDS: Artificial Tears SOLN 15 ML BOTTLE BOTH EYES SCH ×3 (12:40→19:52)
[2018-11-17] MEDS: Chlorhexidine Rinse 15 ML MOUTHWASH MM SCH ×2 (12:40→19:52)
[2018-11-17] MEDS ORDERED: Levothyroxine Sodium 100 MCG VIAL IVP SCH (14:36)
[2018-11-17] MEDS: Levothyroxine Sodium 100 MCG VIAL IVP SCH (18:15)
[2018-11-17] MEDS ORDERED: *HR* Heparin 5,000 UNIT/ML VIAL ONE (20:24)
[2018-11-18] MEDS: Artificial Tears SOLN 15 ML BOTTLE BOTH EYES SCH ×4 (00:11→12:25)
[2018-11-18] MEDS: Hydrocortisone Sodium Succ 100 MG/2 ML VIAL IVP SCH ×3 (00:11→12:26)
[2018-11-18] MEDS: PrismaSATE BGK 4/2.5 5,000 ML CRRT SCH ×8 (00:44→11:08)
[2018-11-18] MEDS: Norepinephrine 8 MG in D5% in Water 250 ML IVC SCH ×3 (00:47→11:33)
[2018-11-18] MEDS: EPINEPHrine 5 MG in D5% in Water 250 ML IVC SCH (00:48)
[2018-11-18] MEDS: Vasopressin 40 UNIT in D5% in Water 100 ML IV SCH (00:49)
[2018-11-18] MEDS: D10% in Water 500 ML IVC SCH ×3 (01:07→09:20)
[2018-11-18] MEDS: Insulin LISPRO 300 UNITS/3 ML VIAL SQ SCH ×3 (01:07→12:25)
[2018-11-18] MEDS: Piperacillin/Tazobactam 3.375 GM in 0.9 % Sodium Chloride Mini Bag 100 ML IVPB SCH ×2 (03:47→11:30)
[2018-11-18] MEDS: *HR* Heparin 5,000 UNIT/ML VIAL SQ SCH (05:24)
[2018-11-18] MEDS: Levothyroxine Sodium 100 MCG VIAL IVP SCH (06:08)
[2018-11-18] MEDS: Pantoprazole 40 MG VIAL IVP SCH (08:06)
--- NOTE | 2018-11-18 08:27 | Pulmonology Progress Note ---
Date of Encounter: 11/18/18 Time of Encounter: 08:26 Assessment and Plan (1) Septic shock Current Visit: Yes Status: Acute Resented to the ED complaining of abdominal pain Likely secondary to UTI urine showing Escherichia coli Blood pressure was not responsive to fluid resuscitation Continues to require Levophed and vasopressin to keep MAP above 65 Epinephrine ordered as the third pressor Continue to treat underlying infection Zosyn day [address] chest do not show any acute abnormalities (2) Multiple organ system failure Current Visit: Yes Status: Acute Ms. shah is requiring 2 pressors for pressure support Additionally her liver function is worsening with total bilirubin of 7.4 and AST of 2012 and ALT of 1573 Platelet counts noted to be 20 Continues to have renal failure on continuous renal replacement therapy Have discussed with the family about poor outcome to multiorgan involvement (3) Shock liver Current Visit: Yes Status: Acute Shock liver likely secondary to septic shock AST 28 and ALT 27 on 11/14/18 Repeat AST 2011 and ALT 1573 Total bilirubin 7.4 with both indirect and direct elevated Continues to have increased requirement for pressors INR is elevated at 3.8 Concern for DIC D-dimer is extremely elevated 6245, PT 43 (4) Urinary tract infection Current Visit: Yes Status: Acute Presented to the ED complaining of abdominal pain CTA of the abdomen showed abdominal ascites Urinalysis shows significant bacteria with leukocyte esterase Urine culture shows Escherichia coli sensitive to Zosyn Continue Zosyn day 5 Qualifiers: Urinary tract infection type: site unspecified Hematuria presence: without hematuria Qualified Code(s): N39.0 - Urinary tract infection, site not specified (5) Hyperkalemia Current Visit: Yes Status: Acute On continuous renal replacement therapy (6) Acute kidney injury superimposed on CKD Current Visit: Yes Status: Acute Presented with creatinine of 2.20 baseline appears 1.2 Not producing any urine, today creatinine is 1.74 Renal ultrasound shows horseshoe kidney, no hydronephrosis noted Nephrology consulted Continue to renally dose medications On continuous renal replacement therapy (7) Elevated lactic acid level Current Visit: Yes Status: Acute Continues to have elevated lactic acid. Last noted to be 8.5 Likely source is UTI with multi organ system failure Zosyn day 5 for UTI and aspiration pneumonia coverage Intubated due to ongoing acidosis and worsening respiratory status (8) Hypoglycemia Current Visit: Yes Status: Acute History of diabetes Likely secondary to shock liver Having episodes of hypoglycemia, unknown etiology On stress dose steroids D10 drip ordered (9) Diabetes Current Visit: No Status: Chronic Having episodes of hypoglycemia not requiring any insulin at this time Qualifiers: Diabetes mellitus type: type 2 Diabetes mellitus terminal makeup operator insulin use: unspecified terminal makeup operator insulin use status Diabetes mellitus complication status: with other specified complication Qualified Code(s): E11.69 - Type 2 diabetes mellitus with other specified complication (10) Thrombocytopenia Current Visit: Yes Status: Acute Platelets noted to be 20 with elevated LFTs No source of bleeding at this time D-dimer also extremely elevated Likely secondary to shock liver (11) DVT prophylaxis Current Visit: No Status: Acute Subcutaneous heparin Subjective Principal diagnosis: JASMINE/CKD Interval history: Ms. Shah was seen at bedside this morning. Her vitals are reviewed and body temperature continues to appear low. Continues to require three pressors to normalize blood pressure. Continues not respond to command. Objective PUL Vital signs: Last Vital Signs Temp 97.1 F L 11/18/18 04:00 Pulse 68 11/18/18 07:00 Resp 30 11/18/18 07:29 BP 126/76 11/18/18 07:00 Pulse Ox 100 11/18/18 07:29 General appearance: no acute distress Eyes: nonicteric ENT: oropharynx moist Neck: supple Effort: normal Auscultation: bilateral: clear Cardiovascular: regular rate and rhythm Gastrointestinal: absent bowel sounds, soft, non-tender Integumentary: normal Extremities: no cyanosis, edema (+2) Musculoskeletal: no deformities unable to assess due to mental status Ventilator Settings Ventilator Settings: Ventilator Settings, Last 8 Hours Ventilator Tidal Volume 400 Setting Ventilator Tidal Volume 400 Setting Ventilator Tidal Volume 400 Setting Ventilator Tidal Volume 400 Setting Ventilator Tidal Volume 400 Setting Ventilator Tidal Volume 400 Setting Ventilator Tidal Volume 400 Setting Ventilator Tidal Volume 400 Setting Ventilator Tidal Volume 400 Setting Ventilator Tidal Volume 400 Setting Ventilator Respiratory Rate 30 Setting Ventilator Respiratory Rate 30 Setting Ventilator Respiratory Rate 30 Setting Ventilator Respiratory Rate 30 Setting Ventilator Respiratory Rate 30 Setting Ventilator Respiratory Rate 30 Setting Ventilator Respiratory Rate 30 Setting Ventilator Respiratory Rate 30 Setting Ventilator Respiratory Rate 30 Setting Ventilator Respiratory Rate 30 Setting Actual Respiratory Rate 31 Actual Respiratory Rate 30 Actual Respiratory Rate 31 Actual Respiratory Rate 30 Actual Respiratory Rate 31 Actual Respiratory Rate 31 Actual Respiratory Rate 30 Actual Respiratory Rate 30 Actual Respiratory Rate 30 Actual Respiratory Rate 31 Positive End Expiratory 10 Pressure Positive End Expiratory 10 Pressure Positive End Expiratory 10 Pressure Positive End Expiratory 10 Pressure Positive End Expiratory 10 Pressure Positive End Expiratory 10 Pressure Positive End Expiratory 10 Pressure Positive End Expiratory 10 Pressure Positive End Expiratory 10 Pressure Positive End Expiratory 10 Pressure Peak Inspiratory Airway 27 Pressure Peak Inspiratory Airway 27 Pressure Peak Inspiratory Airway 27 Pressure Peak Inspiratory Airway 27 Pressure Peak Inspiratory Airway 26 Pressure Peak Inspiratory Airway 26 Pressure Peak Inspiratory Airway 27 Pressure Peak Inspiratory Airway 26 Pressure Peak Inspiratory Airway 27 Pressure Peak Inspiratory Airway 27 Pressure Results - Laboratory Findings CBC and BMP: 11/17/18 03:58 11/17/18 03:58 ABG ABG pH 7.31 pH Units (7.32-7.45) L 11/17/18 04:46 ABG pCO2 38 mmHg (35-45) 11/17/18 04:46 ABG pO2 117 mmHg (85-104) H 11/17/18 04:46 ABG O2 Saturation 98 % (95-98) 11/17/18 04:46 PT/INR, D-dimer PT 43.3 Seconds (9.4-12.1) H* 11/17/18 03:58 D-Dimer 6245 ng/mLFEU (0-500) H 11/16/18 11:10 Abnormal lab findings: Abnormal lab results WBC 26.0 K/mcL (4.3-11.1) H 11/17/18 03:58 RBC 5.08 M/mcL (3.82-4.97) H 11/15/18 04:05 Hgb 16.2 g/dL (11.5-15.4) H 11/14/18 01:22 Hct 46.1 % (35.3-44.9) H 11/17/18 03:58 MCHC 30.3 g/dL (31.6-35.5) L 11/16/18 03:10 RDW 16.6 % (11.5-14.5) H 11/17/18 03:58 Plt Count 20 K/mcL (140-400) L* D 11/17/18 03:58 Band Neutrophils % 6.0 % (0-4) H 11/17/18 03:58 Metamyelocytes % 2.0 % (0) H 11/17/18 03:58 Myelocytes % 6.0 % (0) H 11/16/18 03:10 Neutrophils # 21.8 K/mcL (1.6-8.9) H 11/17/18 03:58 Lymphocytes # 0.5 K/mcL (0.6-4.6) L 11/17/18 03:58 Monocytes # 3.1 K/mcL (0.0-1.3) H 11/17/18 03:58 Nucleated RBCs/100 WBC 2.0 /100 WBC (0) H 11/17/18 03:58 Toxic Granulation Present (Not Present) A 11/16/18 03:10 Platelet Estimate Marked Decrease (Normal) L 11/17/18 03:58 Large Platelets Present (Not Present) A 11/16/18 03:10 Immature Plt Fraction 19.9 % (1.1-6.1) H 11/16/18 03:10 Polychromasia 1+ (Not Present) A 11/14/18 17:30 PT 43.3 Seconds (9.4-12.1) H* 11/17/18 03:58 APTT 43.0 Seconds (26.0-36.0) H 11/16/18 11:10 D-Dimer 6245 ng/mLFEU (0-500) H 11/16/18 11:10 ABG pH 7.31 pH Units (7.32-7.45) L 11/17/18 04:46 ABG pCO2 55 mmHg (35-45) H 11/16/18 11:25 ABG pO2 117 mmHg (85-104) H 11/17/18 04:46 ABG HCO3 19 mEq/L (21-27) L 11/17/18 04:46 ABG Total CO2 16 mEq/L (20-26) L 11/16/18 05:01 ABG O2 Saturation 90 % (95-98) L 11/14/18 01:51 ABG Base Excess -7 mEq/L (-2 to 3) L 11/17/18 04:46 VBG pH 7.14 pH Units (7.32-7.42) L* 11/15/18 17:22 VBG pCO2 61 mmHg (41-51) H 11/15/18 17:22 VBG pO2 52 mmHg (25-50) H 11/15/18 17:22 Mixed VBG pH 7.14 pH Units (7.34-7.36) L 11/16/18 11:16 Mixed VBG pCO2 63 mmHg (44-46) H 11/16/18 11:16 Sodium 130 mEq/L (136-145) L 11/17/18 03:58 Potassium 5.3 mEq/L (3.5-5.1) H 11/17/18 03:58 Chloride 97 mEq/L (98-107) L 11/17/18 03:58 Carbon Dioxide 21 mEq/L (23-29) L 11/17/18 03:58 BUN 25 mg/dL (8-23) H 11/17/18 03:58 Creatinine 1.74 mg/dL (0.60-1.20) H 11/17/18 03:58 Est GFR ( Amer) 36 (> 60) L 11/17/18 03:58 Est GFR (Non-Af Amer) 29 (> 60) L 11/17/18 03:58 Glucose 135 mg/dL (70-105) H 11/17/18 03:58 POC Glucose 120 mg/dL (70-99) H 11/18/18 05:33 Calculated Osmolality 276 (280-300) L 11/17/18 03:58 Lactic Acid 8.5 mmol/L (0.5-2.2) H* 11/16/18 07:23 Calcium 8.5 mg/dL (8.6-10.3) L 11/17/18 03:58 Total Bilirubin 7.4 mg/dL (0.3-1.0) H 11/17/18 03:58 Direct Bilirubin 4.2 mg/dL (0.0-0.2) H 11/17/18 03:58 Indirect Bilirubin 3.2 mg/dL (0.0-1.2) H 11/17/18 03:58 AST 2012 Units/L (13-39) H 11/17/18 03:58 ALT 1573 Units/L (7-52) H 11/17/18 03:58 Lactate Dehydrogenase 2060 Units/L (140-271) H 11/16/18 07:23 Serum Total Protein 6.1 g/dL (6.4-8.9) L 11/17/18 03:58 Globulin 1.5 g/dL (2.4-3.5) L 11/17/18 03:58 Albumin/Globulin Ratio 3.1 (1.1-2.2) H 11/17/18 03:58 TSH 10.761 mcIU/mL (0.340-5.600) H 11/16/18 07:23 Urine Clarity Turbid (Clear) A 11/14/18 02:24 Urine Protein 100 mg/dL (Neg-Trace) H 11/14/18 02:24 Urine Blood Large (Negative) H 11/14/18 02:24 Ur Leukocyte Esterase Large (Negative) H 11/14/18 02:24 Urine Microscopic RBC TNTC per hpf (0-3) H 11/14/18 02:24 Urine Microscopic WBC TNTC per hpf (0-3) H 11/14/18 02:24 Ur Squamous Epith Cells Many per lpf (None-Few) H 11/14/18 02:24 Amorphous Sediment Many (Few) H 11/14/18 02:24 Urine Bacteria Many per hpf (None-Few) H 11/14/18 02:24 Ur Culture Indicated? YES (NO) A 11/14/18 02:24 - Microbiology Findings Microbiology Findings: Microbiology, Last 48 Hours 11/14/18 02:24 Urine Culture - Final Urine,Catheterized (Straight) Escherichia coli - Clinical Findings Intake & Output: Intake & Output 11/17/18 11/18/18 11/18/18 23:59 07:59 15:59 Intake Total 816 / 2592.7 1000.9 / 1000.9 Output Total 1088 / 3195 905 / 1089 184 / 1089 Balance -272 / -602.3 95.9 / -88.1 -184 / -88.1 Consult Discharge Plan - Plan Referrals: Van Ruffin DO [Primary Care Provider] -
--- NOTE | 2018-11-18 10:20 | Nephrology Progress Note ---
Date of Encounter: 11/18/18 Time of Encounter: 10:18 - Assessment and Plan (1) Acute kidney injury superimposed on CKD Current Visit: Yes Status: Acute Patient is currently being managed for acute kidney injury superimposed on chronic kidney injury. JASMINE multifactorial, due to ATN secondary to septic shock requiring pressors vs AARON after CT dissection study vs vancomycin exposure, or a combination of all the above factors. With worsening creatinine, and evidence of hyperkalemia she was started on dialysis. She is dialysis dependent. She remains critically ill with very poor prognosis. Continue CVVHDF. Adjust medications as needed for renal function. Avoid nephrotoxic agents. 33 minutes spent in the care of this critically ill patient. The family may withdraw care later today. (2) Morbid obesity Current Visit: Yes Status: Acute (3) Hyperkalemia Current Visit: Yes Status: Acute dialysis. (4) Septic shock Current Visit: Yes Status: Acute Patient with severe sepsis. She is on multiple vasopressors. She is receiving antibiotics and treating underlying infection. Her prognosis is poor. (5) Shock liver Current Visit: Yes Status: Acute No citrate. (6) Urinary tract infection Current Visit: Yes Status: Acute Qualifiers: Urinary tract infection type: site unspecified Hematuria presence: without hematuria Qualified Code(s): N39.0 - Urinary tract infection, site not specified (7) Diabetes Current Visit: No Status: Chronic Qualifiers: Diabetes mellitus type: type 2 Diabetes mellitus mcfp insulin use: unspecified mcfp insulin use status Diabetes mellitus complication status: with other specified complication Qualified Code(s): E11.69 - Type 2 diabetes mellitus with other specified complication (8) Respiratory failure Current Visit: Yes Status: Acute She is on the ventilator Qualifiers: Qualified Code(s): J96.90 - Respiratory failure, unspecified, unspecified whether with hypoxia or hypercapnia Subjective Principal diagnosis: JASMINE/CKD Interval history: Patient seen and evaluated. She is intubated, sedated and critically ill. ROS unobtainable. She remains on CVVHDF. Objective - Vital Signs Vital signs: Vital Signs Temp Pulse Resp BP Pulse Ox 11/18/18 09:00 97.5 F L 67 30 126/77 96 11/18/18 08:00 66 30 96/72 100 11/18/18 07:29 30 100 11/18/18 07:00 68 30 126/76 100 11/18/18 06:00 68 30 123/75 100 11/18/18 05:51 30 120/74 100 11/18/18 05:00 69 30 111/69 94 11/18/18 04:00 97.1 F L 67 31 91/60 99 11/18/18 03:49 30 117/73 99 11/18/18 03:00 70 30 112/70 99 11/18/18 02:00 70 30 116/72 99 11/18/18 01:00 71 30 119/74 98 11/18/18 00:00 96.3 F L 71 30 127/77 99 11/17/18 23:58 30 125/76 99 11/17/18 23:00 64 30 95/62 100 11/17/18 22:04 30 117/72 100 11/17/18 22:00 67 30 117/72 100 11/17/18 21:00 69 30 115/71 99 11/17/18 20:00 96.2 F L 69 30 110/69 96 11/17/18 19:39 30 118/72 96 11/17/18 19:00 67 30 110/68 96 11/17/18 18:00 67 30 96/61 96 11/17/18 17:47 30 97/61 98 11/17/18 17:00 65 30 100/63 98 11/17/18 16:00 95.5 F L 65 30 93/59 98 11/17/18 15:30 30 93/60 99 11/17/18 15:00 65 30 92/59 98 11/17/18 14:00 66 30 90/59 96 11/17/18 13:09 30 93/60 99 11/17/18 13:00 65 30 92/58 98 11/17/18 12:00 95.2 F L 67 30 83/56 95 11/17/18 11:00 68 30 82/54 94 Intake and Output 11/17/18 11/18/18 11/18/18 23:59 07:59 15:59 Intake Total 816 / 2592.7 1000.9 / 1350.9 350 / 1350.9 Output Total 1088 / 3195 905 / 1391 486 / 1391 Balance -272 / -602.3 95.9 / -40.1 -136 / -40.1 Intake: IV Fluids 816 / 2592.7 1000.9 / 1350.9 350 / 1350.9 PrismaSATE BGK 4/2.5 5,000 ML @ 0 / 0 0 / 0 1500 mls/hr CRRT CONT [facility] Rx#: [id number] Vasostrict 40 UNIT In Dextrose 85 / 85 5% 100 ML @ 0.03 UNIT/MIN 4.59 mls/hr IV .[id number] [facility] Rx#: [id number] Dextrose 10% Water 500 Ml Ivbag 250 / 250 500 ML @ 50 mls/hr IVC .Q10H [facility] Rx#:[id number] EPINEPHrine 5 MG In Dextrose 5% 357.9 / 357.9 250 ML @ 2 MCG/MIN 6.12 mls/hr IVC CONT [facility] Rx#:[id number] Levophed 8 MG In Dextrose 5% 516 / 1411.9 258 / 258 250 ML @ 8 MCG/MIN 15.48 mls/hr IVC CONT [facility] Rx#:[id number] Diprivan 1,000 mg In 100 ml @ 200 / 387.9 100 / 200 100 / 200 20 MCG/KG/MIN 18.252 mls/hr IVC .Q5H29M [facility] Rx#:[id number] Zosyn 3.375 GM In 0.9 % Sodium 100 / 351.9 200 / 200 Chloride (Mini-Bag +) 100 ML @ 25 mls/hr IVPB Q8H [facility] Rx#: [id number] Oral 0 / 0 0 / 0 Output: Urine 0 / 0 Emma 243 / 243 Catheter 20 / 60 50 / 50 0 / 50 Gastric Drainage 0 / 0 Fluid Removed by Prismaflex 1058 / 3095 855 / 1098 243 / 1098 Other: Blood Glucose* 116 120 126 - General Appearance General appearance: Present: well-developed, well-nourished, obese, sedated on ventilator, intubated EENT: Present: ATNC Cardiology: Present: regular rate Dialysis Vascular Access: Venous Catheter Gastrointestinal: Present: obese Additional Comments: Patient is intubated Musculoskeletal: Present: cyanosis Additional Comments: Patient is intubated - Lab 11/17/18 03:58 11/17/18 03:58 Consult Discharge Plan - Plan Referrals: Van Ruffin DO [Primary Care Provider] -
[2018-11-18] MEDS ORDERED: Morphine Sulfate 2 MG/ML SYRINGE IVP ONE (11:52)
[2018-11-18 13:07] VITALS: BP 63/39
--- NOTE | 2018-11-18 13:22 | Death Note ---
Discharge Sum: Summary - Date and Time Date of admission: 11/14/18 04:54 Date of : 11/18/18 Time of : 13:13 - Summary Details: Ms. Cline is a 59 for a female presented to the ED on 11/14/18 complaining of wo rsening abdominal pain. Was noted to have a large erythematous papular region on her abdomen. In the ED due to acute onset of the pain and skin changes noted on abdomen she was evaluated for aortic dissection with CTA which was negative. CT showed abdominal ascites with horseshoe kidney and nephrolithiasis. Her urinalysis showed leukocyte esterase was positive for Escherichia coli. At presentation she had leukocytosis with thrombocytopenia. She was started on Zosyn for suspected pneumonia and UTI. Her symptoms were not improving and the following day her respiratory status continued to worsen and white count continued to remain elevated. On 11/16/[address] she had a repeat CT of the abdomen and pelvis as well as CT chest and CT had was did not show any conclusive evidence of acute abnormalities. On 11/16/18 due to labile blood pressure and not responding to vasopressors she received an arterial line and was subsequently intubated. Her lactic acid was elevated at 8.5 with LFTs noted to be in the thousands. On 11/17/18 she was increased to 3 pressors but was not responding clinically. High INR was also elevated at 3.8 and her platelet counts were noted to be 20. He continues to not respond to aggressive measurement of vasopressors as well as antibiotic regimen. On 11/18/18 family decided to stop aggressive measures and terminally extubate. Vasopressors were initially stopped and her pressure continued to decline and shortly thereafter she was extubated and at 1313 there were no pulses that could be auscultated, she had no respirations, had fixed dilated pupil. - Additional Data Confirmation of as documented by pronouncing clinician: no pulse, no respirations, no heart sounds, pupils fixed and dilated Family: at bedside Attending/PCP notified?: No Attending physician: Payton Castillo MD Was code activated?: No Autopsy requested?: No gun examiner notified?: No Organ bank notified?: No Advance directives: No Hospice patient?: No Discharge Sum: Diag - PCOD Probable Cause of : Septic shock Discharge Sum: Prov - Provider Primary care physician: Van Ruffin DO Admitting clinician: Cindy Barnes Attending physician on admission: Agatha Arreguin Consults: 11/14/18 09:05 Consult to Surgery [CONS] Stat Consulting Provider: Acute Care Surgery Reason for Consult: abdominal infection Time Notified: 09:06 Call Completed: Yes 11/14/18 10:08 Consult to Nephrology [CONS] Routine Consulting Provider: Kidney Regine/GILDARDO/MARTIN/STEPHENIE Reason for Consult: thony on ckd Call Completed: Yes 11/15/18 11:13 Consult to Interventional Radiology [CONS] Routine Consulting Provider: Radiology Interventional Cols Reason for Consult: Temp catheter for CRRT Call Completed: No 11/15/18 21:45 Consult to Chestnut Tanner [CONS] Routine Reason for SW Consult: Pt requesting information on POA Pronouncing clinician: Flor Mix
== END 2018-11-18 13:13 | disposition expired | DRG 720 ==
LOC: EMEROOARM 00:38 → ICNU 04:54
PROVIDERS: ADMIT Internal Medicine; ATTEND Internal Medicine